=== PATIENT | female | born 1990 | race Caucasian/White ===

== ENCOUNTER → 2019-09-21 08:41 | Outpatient (BNVA) | payer OTHER, SELFPAY | PROVIDERS: Family Provider Nurse Practitioner; PCP Nurse Practitioner; Visit Provider Nurse Practitioner | DX: I10 Essential (primary) hypertension (principal); E55.9 Vitamin D deficiency, unspecified; E03.8 Other specified hypothyroidism; E04.9 Nontoxic goiter, unspecified | CPT/HCPCS: 80053; 82306; 84443; 85025 ==

== ENCOUNTER → 2019-10-25 10:25 | Outpatient (BNVA) | payer OTHER, SELFPAY | PROVIDERS: Family Provider Nurse Practitioner; PCP Nurse Practitioner; Visit Provider Obstetrics & Gynecology | DX: N91.1 Secondary amenorrhea (principal) | CPT/HCPCS: 83001; 84146; 84443; 84703 ==

== ENCOUNTER → 2019-10-31 16:55 | Outpatient (BNVA) | payer OTHER, SELFPAY | PROVIDERS: Family Provider Nurse Practitioner; PCP Nurse Practitioner; Visit Provider Nurse Practitioner Family | DX: R07.9 Chest pain, unspecified (principal) | CPT/HCPCS: 71046 ==

== ENCOUNTER 2020-02-18 10:20 | Emergency (ER) | payer OTHER, SELFPAY ==
[2020-02-18 10:25] VITALS: BP 147/113; PULSE 84; TEMP 36.7; O2SAT 97; BMI 47.5
[2020-02-18 10:32] VITALS: RESP 18
--- NOTE | 2020-02-18 10:36 | XRR_ITS ---
PROCEDURE INFORMATION: Exam: XR Right Elbow Exam date and time: 02/18/2020 10:55 AM Age: 29 years old Clinical indication: Injury or trauma; Initial encounter; Blunt trauma (contusions or hematomas; Elbow; Right; Injury date: 02/17/2020; Injury details: Fall last pm, limited rom and pain since TECHNIQUE: Imaging protocol: XR Right elbow. Views: 3 or more views. COMPARISON: No relevant prior studies available. FINDINGS: Bones/joints: No radiographic evidence of acute fracture or dislocation. Alignment anatomic. Joint spaces preserved. Elevation of the anterior fat pad without corresponding abnormality posteriorly. Soft tissues: Mild soft tissue swelling along the dorsum of the proximal forearm. XR/XR elbow RT min 3V* [id number] IMPRESSION: Questionable effusion and mild soft tissue swelling without convincing acute osseous abnormality. Clinical correlation and follow-up is urged.
--- NOTE | 2020-02-18 10:37 | XRR_ITS ---
PROCEDURE INFORMATION: Exam: XR Right Wrist Exam date and time: 02/18/2020 10:55 AM Age: 29 years old Clinical indication: Injury or trauma; Initial encounter; Blunt trauma (contusions or hematomas; Wrist; Right; Injury date: 02/17/2020; Injury details: Fall last pm, limited rom and pain since TECHNIQUE: Imaging protocol: XR Right wrist. Views: 3 or more views. COMPARISON: No relevant prior studies available. FINDINGS: Bones/joints: No radiographic evidence of acute fracture or dislocation. Alignment anatomic. Joint spaces preserved. Soft tissues: Grossly unremarkable. XR/XR wrist RT min 3V* [id number] IMPRESSION: No acute radiographic findings.
--- NOTE | 2020-02-18 10:37 | W.ED.EXTPRO ---
HPI - Extremity Problem General: Chief complaint: Extremity Injury, Upper Stated complaint: R ARM INJURY Time Seen by Provider: 02/18/20 10:26 History of Present Illness: HPI Narrative: [place] in the river she fell backwards extending the right arm now she has pain in her right elbow and right wrist she has no swelling but she says it does hurt to extend her elbow and is limited range of motion MD Complaint: extremity pain and joint pain Onset (ago): day(s) Pain Consistency: constant Location: right, upper extremity and elbow Severity scale (1-10): 5 Quality: aching Radiation: none Relieving factors: immobilization Exacerbating factors: range of motion Associated symptoms: Reports no associated symptoms; Deny chest pain, fever(s) or rash Review of Systems Const: Denies: fever(s), chills or body aches Eyes: Denies: change in vision or blurry vision ENMT: Denies: throat pain or nasal congestion Card: Denies: chest pain or dyspnea on exertion Resp: Denies: dyspnea, productive cough or non-productive cough GI: Denies: abdominal pain, nausea or vomiting Musc: Reports: extremity pain (Right wrist) and joint pain (Right elbow) Skin/Breast: Denies: rash Neuro: Denies: headache(s) Psych: Denies: anxiety or depression Jonas/Lymph: Denies: easy bruising PFSH ED PFSH: Medical History (Updated 01/19/20 @ 23:31 by DON Sharma) Chronic migraine Class 1 obesity with serious comorbidity in adult Cory's thyroiditis Hypertension Hypothyroid Lumbar radiculopathy, chronic Patient denies medical problems Denies history of: heart disease, breast cancer, ovarian cancer, or uterine cancer Vitamin D deficiency Surgical History History of tonsillectomy and adenoidectomy History of tubal ligation (~01/23/16) bilateral tubal ligation. Performed by Dr. Reginald Hair at [facility] in [place], [place]. Family History Father Hyperlipidemia Hypertension Thyroid condition Mother Colon cancer Brother Colon cancer Grandmother Diabetes Maternal and paternal Stroke maternal Denies family history of Ovarian cancer Heart disease Breast cancer Uterine cancer Social History Smoking and tobacco status: never smoked Second hand smoke exposure: No Smoking risk assessment/counseling performed?: No Alcohol intake: never Desire information about alcohol rehabilitation?: No Counseling given: No Desire information about substance/drug rehabilitation?: No Counseling given: No Adopted: No Caregiver/support person: No Lives independently: Yes Household members: spouse Housing: House Marital status: Number of children: 2 service: No Current occupational status: employed Current occupation: [employer] Pets and animals: No History of recent travel: No Current gender identity: Female Physical Exam Const: COMMON NORMALS: no acute distress, average body habitus and patient oriented x3 HENMT: COMMON NORMALS: normocephalic HEAD & SCALP: normal to inspection and normocephalic FACE & SINUS: normal facial exam Eye: COMMON NORMALS: conjunctivae normal GENERAL EYE: appearance normal, both eyes and all related structures CONJUNCTIVA: Yes conjunctivae normal Neck/C-Spine: COMMON NORMALS: no JVD Chest: COMMONS NORMALS: normal inspection of the chest Resp: COMMON NORMALS: normal respiratory effort and clear to auscultation bilaterally AUSCULTATION: clear to auscultation bilaterally Cardio: COMMON NORMALS: no JVD, regular rate and regular rhythm RATE: regular rate RHYTHM: regular rhythm GI: COMMON NORMALS: Normal to inspection, nondistended, normoactive bowel sounds present Extremity: COMMON NORMALS: normal to inspection RIGHT UPPER EXTREMITY: Yes elbow joint (Tender to medial aspect no swelling limited range of motion can extend proximally 160 degrees) and Yes wrist (Slight tenderness full range of motion) Neuro: COMMON NORMALS: patient oriented x3 Course Vital Signs: Vital signs: Vital Signs Temperature 98.1 F 02/18/20 10:25 Pulse Rate 84 02/18/20 10:25 Blood Pressure 147/113 02/18/20 10:25 Pulse Oximetry 97 02/18/20 10:25 Discharge Plan Discharge Prescriptions: No Action lisinopril 10 mg tablet 10 mg PO DAILY Qty: 90 RF: 1 ondansetron 4 mg tablet,disintegrating 4 mg PO Q8H PRN (Reason: nausea and vomiting) Qty: 14 RF: 0 Contrave 8-90 mg tablet extended release 2 tab PO .every 12 hours Qty: 120 RF: 0 levothyroxine [Synthroid] 25 mcg tablet 25 mcg PO DAILY Qty: 90 RF: 1 zonisamide 25 mg capsule 25 mg PO Q12H Qty: 60 RF: 0 cholecalciferol (vitamin D3) PO DAILY RF: 0 Coding Level 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
[2020-02-18 11:12] VITALS: RESP 18; TEMP 36.7; O2SAT 97
== END 2020-02-18 11:12 | disposition home or self-care (01) ==
PROVIDERS: Emergency Provider Nurse Practitioner Family; Family Provider Nurse Practitioner; PCP Nurse Practitioner
DX: S49.91XA Unspecified injury of right shoulder and upper arm, initial encounter (principal); I10 Essential (primary) hypertension; E66.8 Other obesity; W19.XXXA Unspecified fall, initial encounter
CPT/HCPCS: 12345; 73080; 73110; 99281; 99282

== ENCOUNTER 2020-03-02 14:52 | Outpatient (CLI) | payer OTHER, SELFPAY ==
--- NOTE | 2020-03-02 15:15 | MR_ITS ---
WS: [id number] MRI RIGHT ELBOW without CONTRAST. COMPARISON: Elbow radiograph 02/18/2020. Multiplanar, multisequence imaging is performed without contrast. History: Pain and swelling, prior trauma. Pain Marrow edema involving the proximal 3 cm of the radius. There is a nondisplaced fracture through the radial neck and head. Humeral condyles are intact. The proximal ulna is normal. There is a small to moderate joint effusion with distention of the anterior and posterior capsule. No displacement at the elbow joint. Distal biceps tendon and the brachial radialis are intact. No ligament or tendon abnorm ality is appreciated. MR/MR elbow RT wo con* [id number] IMPRESSION: 1. Nondisplaced radial head and neck fracture. No displacement. 2. Small to moderate joint effusion.
== END 2020-03-02 14:53 | disposition home or self-care (01) ==
LOC: RADSHAW 14:56
PROVIDERS: PCP Nurse Practitioner; Visit Provider Nurse Practitioner
DX: M25.521 Pain in right elbow (principal); S52.124A Nondisplaced fracture of head of right radius, initial encounter for closed fracture; S52.134A Nondisplaced fracture of neck of right radius, initial encounter for closed fracture; X58.XXXA Exposure to other specified factors, initial encounter; M25.421 Effusion, right elbow
CPT/HCPCS: 73221

== ENCOUNTER → 2020-03-19 11:11 | Outpatient (BNVA) | payer OTHER, SELFPAY | PROVIDERS: PCP Nurse Practitioner | DX: R10.9 Unspecified abdominal pain (principal); M54.16 Radiculopathy, lumbar region; R11.2 Nausea with vomiting, unspecified; Z68.42 Body mass index [BMI] 45.0-49.9, adult | CPT/HCPCS: 81000; 81003 ==

== ENCOUNTER → 2020-03-23 14:18 | Outpatient (BNVA) | payer OTHER, SELFPAY | PROVIDERS: PCP Nurse Practitioner; Visit Provider Nurse Practitioner | DX: E55.9 Vitamin D deficiency, unspecified (principal); E06.3 Autoimmune thyroiditis; G43.709 Chronic migraine without aura, not intractable, without status migrainosus; R20.2 Paresthesia of skin; I10 Essential (primary) hypertension; E66.9 Obesity, unspecified; Z79.899 Other long term (current) drug therapy | CPT/HCPCS: 36415; 80053; 82306; 82607; 84439; 84443; 84481; 85025 ==

== ENCOUNTER 2020-03-28 13:37 | Outpatient (CLI) | payer OTHER, SELFPAY ==
--- NOTE | 2020-03-28 13:47 | MR_ITS ---
WS: [id number] MRI HEAD WITHOUT CONTRAST TECHNIQUE: Sagittal T1, T2 axial, T2 axial FLAIR, axial and coronal T1 images, axial susceptibility w eighted imaging, axial diffusion weighted images, and coronal T2 images were obtained. CLINICAL INFORMATION: CHRONIC MIGRAINES COMPARISON: CT and MRI January 28, 2016 FINDINGS: No evidence of restricted diffusion to suggest acute ischemia. Ventricular system and basal cisterns are patent. No suspicious intracranial signal abnormalities. Normal cabrera-white differentiation. Mehreen l posterior fossa. Normal vascular flow voids at the skull base. No extra-axial fluid collections. No evidence of mass or mass effect. Paranasal sinuses are well aerated. Mild mucosal thickening right m astoid air cells. No hemosiderin on susceptibly weighted images. Normal optic chiasm and pituitary infundibulum. Temporal lobes and hippocampal formations are normal in appearance. MR/MR head wo con* [id number] IMPRESSION: 1. No evidence of restricted diffusion to suggest acute ischemia. 2. Ventricular system and basal cisterns are patent. Normal caberra-white differe ntiation. 3. Mild mucosal thickening in the mastoid air cells right greater than left. 4. No hemosiderin on susceptibly weighted images. 5. No other significant findings.
== END 2020-03-28 13:38 | disposition home or self-care (01) ==
LOC: RADWPI 13:42
PROVIDERS: PCP Nurse Practitioner; Visit Provider Nurse Practitioner
DX: R20.2 Paresthesia of skin (principal); G43.709 Chronic migraine without aura, not intractable, without status migrainosus
CPT/HCPCS: 70551

== ENCOUNTER 2020-06-04 21:53 | Emergency (ER) | payer OTHER, SELFPAY ==
[2020-06-04 22:40] VITALS: BP 112/85; BP 135/85; PULSE 108; PULSE 75; RESP 14; RESP 16; TEMP 37; TEMP 37.7; O2SAT 98; BMI 49.4
--- NOTE | 2020-06-04 23:21 | XR_ITS ---
WS: [id number] PORTABLE CHEST HISTORY: COVID rule out COMPARISON: 10/31/2019 Lungs are clear and well expanded. No pleural effusion or pneumothorax. Cardiac size: Normal. Mediastinum/Aorta: Normal mediastinum. No osseous abnormality seen. XR/XR chest 1V portable [id number] IMPRESSION: Unremarkable portable chest.
--- NOTE | 2020-06-04 23:35 | ED_ITS ---
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 She started feeling bad yesterday with some diarrhea and achiness. This morning she woke up with a fever and tried to call into work. She was told to come in anyway. 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 By the time she got home her temperature was 102.8. She took some Tylenol and has basically been in bed all day. She felt too ill to come to the hospital and waited for her to get home so he could bring her. She is having nausea but no vomiting. She is having diarrhea. She has a cough, shortness of breath. She does not have loss of taste or smell. 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 Her most recent exposure was 4 days before her symptoms started. She has a history of Cory's thyroiditis. She also is being worked up for a positive ISABELLE blood test. She does not have diabetes. MD elicited complaint: fever, malaise and weakness Onset (ago): day(s) (2) Measured temperature: 102.8 F Context: sick contacts Exacerbating factors: nothing Associated symptoms: Reports flank pain, myalgias, nasal congestion, nausea and sore throat; Deny chills, chest pain or headache(s) Treatments prior to arrival fever: acetaminophen Review of Systems General: Reports: 10 or more systems reviewed and unremarkable except in HPI and below Const: Denies: fever(s), chills, fatigue or malaise Eyes: Denies: change in vision ENMT: Reports: nasal congestion Card: Denies: chest pain or swelling of feet/ankles Resp: Reports: non-productive cough; Denies: dyspnea or productive cough GI: Reports: nausea : Reports: flank pain Musc: Denies: neck pain or back pain Skin/Breast: Denies: rash Neuro: Denies: headache(s), numbness in extremities or weakness in extremities Jonas/Lymph: Denies: easy bruising or easy bleeding [facility] ED PFSH: Medical History Chronic migraine Class 1 obesity with serious comorbidity in adult Cory's thyroiditis Hypertension Hypothyroid Lumbar radiculopathy, chronic Patient denies medical problems Denies history of: heart disease, breast cancer, ovarian cancer, or uterine cancer Vitamin D deficiency Surgical History History of tonsillectomy and adenoidectomy History of tubal ligation (~01/23/16) bilateral tubal ligation. Performed by Dr. Reginald Hair at [facility] in [place], [place]. Family History Father Hyperlipidemia Hypertension Thyroid condition Mother Colon cancer Brother Colon cancer Grandmother Diabetes Maternal and paternal Stroke maternal Denies family history of Ovarian cancer Heart disease Breast cancer Uterine cancer Social History Smoking and tobacco status: never smoked Second hand smoke exposure: No Smoking risk assessment/counseling performed?: No Alcohol intake: never Desire information about alcohol rehabilitation?: No Counseling given: No Desire information about substance/drug rehabilitation?: No Counseling given: No Adopted: No Caregiver/support person: No Lives independently: Yes Household members: spouse Housing: House Marital status: Number of children: 2 service: No Current occupational status: employed Current occupation: [employer] Pets and animals: No History of recent travel: No Current gender identity: Female Female Reproductive History: Date of last menstrual period: 03/23/20 Physical Exam Const: COMMON NORMALS: no acute distress, patient oriented x3, no limitations and alert GENERAL APPEARANCE: cooperative NUTRITIONAL APPEARANCE: obese HENMT: HEAD & SCALP: normal to inspection FACE & SINUS: normal facial exam Eye: GENERAL EYE: appearance normal, both eyes and all related structures Neck/C-Spine: COMMON NORMALS: supple, no meningeal signs and no JVD Chest: COMMONS NORMALS: normal inspection of the chest Resp: COMMON NORMALS: normal respiratory effort, No use of accessory muscles and clear to auscultation bilaterally AUSCULTATION: clear to auscultation bilaterally Cardio: COMMON NORMALS: no JVD, regular rate, regular rhythm and No murmurs present (Cardio) RATE: regular rate RHYTHM: regular rhythm GI: COMMON NORMALS: Normal to inspection, nondistended, normoactive bowel sounds present, Soft to palpation and non-tender INSPECTION: Yes normal to inspection AUSCULTATION: Yes normoactive bowel sounds PALPATION: Yes Soft to palpation Back/Pelvis: COMMON NORMALS: thoracic and lumbar spine normal to inspection Extremity: COMMON NORMALS: normal to inspection Neuro: COMMON NORMALS: patient oriented x3, moves all extremities, no focal motor deficits and no sensory deficits noted SENSORIUM/ORIENTATION: Yes alert MENINGEAL SIGNS: Yes no meningeal signs Psych: COMMON NORMALS: mental status grossly normal, cooperative and normal affect Skin: COMMON NORMALS: no rashes or lesions noted and turgor normal GENERAL SKIN EXAM: no rashes or lesions noted and turgor normal Course ED course: This patient had good oxygen saturation while in the department. She was tolerating p.o. fluids. She is on only day 2-3 of symptoms and day 6 or 7 since her last known exposure. We discussed the possibility of worsening symptoms particularly between 7 and 10 days of infection. Although her COVID rapid test was negative my clinical impression is very strongly suggesting COVID-19 infection. Her labs are consistent with that other than the rapid antigen test. I have advised her to not go to work and to self quarantine. Her probably should also self quarantine. She can follow-up with employee health if necessary for further guidance on when she can return to work. A quest COVID test has also been sent. Vital Signs: Vital signs: Vital Signs Temperature 98.4 F 06/05/20 00:41 Pulse Rate 92 06/05/20 02:19 Respiratory Rate 15 06/05/20 02:19 Blood Pressure 129/91 06/05/20 02:19 Pulse Oximetry 97 06/05/20 02:19 MDM - Fever Lab Data: Labs: Lab Results 06/04/20 06/04/20 06/04/20 Range/Units 23:33 23:33 23:33 WBC 8.3 (4.0-10.0) 10^3/ uL RBC 4.83 (4.1-5.3) 10^6/u L Hgb 12.3 (11.5-15.3) g/dL Hct 39.6 (37.0-47.0) % MCV 82.0 (81-99) fL MCH 25.5 L (28.0-34.0) pg MCHC 31.1 (30.0-36.0) g/dL RDW 15.2 H (12.1-15.1) % Plt Count 212 (130-400) 10^3/c mm MPV 10.0 (7.4-10.4) fL Neut % (Auto) 77.4 % Lymph % (Auto) 15.0 % [place] % (Auto) 6.9 % Eos % (Auto) 0.1 % Baso % (Auto) 0.4 % Neut # (Auto) 6.41 (1.8-7.7) 10^3/u L Lymph # (Auto) 1.2 (0.8-4.8) 10^3/u L [place] # (Auto) 0.6 (0.2-0.9) 10^3/u L Eos # (Auto) 0.0 (0.0-0.8) 10^3/u L Baso # (Auto) 0.0 (0.0-0.1) 10^3/u L Nucleated RBC % (a uto) 0 % Nucleated RBCs # 0.0 /100WBC PT 13.70 (12.1-14.9) SECO NDS INR 1.02 (0.8-1.2) Fibrinogen 539 H (174-498) mg/dL D-Dimer 2.96 H (0-0.59) ug/mIFE U Sodium 134 L (136-145) mmol/L Potassium 3.3 L (3.5-5.1) mmol/L Chloride 99 (98-107) mmol/L Carbon Dioxide 22 (22-29) mmol/L Anion Gap 16.3 (5-19) BUN 8 (6-20) mg/dL Creatinine 0.7 (0.5-0.9) mg/dL GFR Calculation 98.9 (90-130) mL/min Glucose 121 H (65-115) mg/dL Calculated Osmolal ity 278 L (285-295) mOsm/k g Lactic Acid (0.5-2.2) mmol/L Calcium 8.9 (8.5-10.5) mg/dL Ferritin 134 (15-150) ng/mL Total Bilirubin 0.3 (0.15-1.2) mg/dL AST 17 (0-32) U/L ALT 13 (0-33) U/L Alkaline Phosphata se 65 (35-105) IU/L C-Reactive Protein 102.4 H (0.0-4.9) mg/L NT-Pro-B Natriuret Pep 36 (0-125) pg/mL Total Protein 6.9 (6.6-8.7) g/dL Albumin 3.6 (3.5-5.2) g/dL Globulin 3.3 (1.3-4.6) g/dL Procalcitonin 0.16 (0-0.5) ng/mL HCG, Qual (Negative) Influenza Type A A g (Negative) Influenza Type B A g (Negative) SARS-CoV-2 Ag (Rap id) (Negative) 06/04/20 06/04/20 06/04/20 Range/Units 23:33 23:33 23:33 WBC (4.0-10.0) 10^3/ uL RBC (4.1-5.3) 10^6/u L Hgb (11.5-15.3) g/dL Hct (37.0-47.0) % MCV (81-99) fL MCH (28.0-34.0) pg MCHC (30.0-36.0) g/dL RDW (12.1-15.1) % Plt Count (130-400) 10^3/c mm MPV (7.4-10.4) fL Neut % (Auto) % Lymph % (Auto) % [place] % (Auto) % Eos % (Auto) % Baso % (Auto) % Neut # (Auto) (1.8-7.7) 10^3/u L Lymph # (Auto) (0.8-4.8) 10^3/u L [place] # (Auto) (0.2-0.9) 10^3/u L Eos # (Auto) (0.0-0.8) 10^3/u L Baso # (Auto) (0.0-0.1) 10^3/u L Nucleated RBC % (a uto) % Nucleated RBCs # /100WBC PT (12.1-14.9) SECO NDS INR (0.8-1.2) Fibrinogen (174-498) mg/dL D-Dimer (0-0.59) ug/mIFE U Sodium (136-145) mmol/L Potassium (3.5-5.1) mmol/L Chloride (98-107) mmol/L Carbon Dioxide (22-29) mmol/L Anion Gap (5-19) BUN (6-20) mg/dL Creatinine (0.5-0.9) mg/dL GFR Calculation (90-130) mL/min Glucose (65-115) mg/dL Calculated Osmolal ity (285-295) mOsm/k g Lactic Acid 0.8 (0.5-2.2) mmol/L Calcium (8.5-10.5) mg/dL Ferritin (15-150) ng/mL Total Bilirubin (0.15-1.2) mg/dL AST (0-32) U/L ALT (0-33) U/L Alkaline Phosphata se (35-105) IU/L C-Reactive Protein (0.0-4.9) mg/L NT-Pro-B Natriuret Pep (0-125) pg/mL Total Protein (6.6-8.7) g/dL Albumin (3.5-5.2) g/dL Globulin (1.3-4.6) g/dL Procalcitonin (0-0.5) ng/mL HCG, Qual Negative (Negative) Influenza Type A A g (Negative) Influenza Type B A g (Negative) SARS-CoV-2 Ag (Rap id) Negative (Negative) 06/04/20 Range/Units 23:33 WBC (4.0-10.0) 10^3/ uL RBC (4.1-5.3) 10^6/u L Hgb (11.5-15.3) g/dL Hct (37.0-47.0) % MCV (81-99) fL MCH (28.0-34.0) pg MCHC (30.0-36.0) g/dL RDW (12.1-15.1) % Plt Count (130-400) 10^3/c mm MPV (7.4-10.4) fL Neut % (Auto) % Lymph % (Auto) % [place] % (Auto) % Eos % (Auto) % Baso % (Auto) % Neut # (Auto) (1.8-7.7) 10^3/u L Lymph # (Auto) (0.8-4.8) 10^3/u L [place] # (Auto) (0.2-0.9) 10^3/u L Eos # (Auto) (0.0-0.8) 10^3/u L Baso # (Auto) (0.0-0.1) 10^3/u L Nucleated RBC % (a uto) % Nucleated RBCs # /100WBC PT (12.1-14.9) SECO NDS INR (0.8-1.2) Fibrinogen (174-498) mg/dL D-Dimer (0-0.59) ug/mIFE U Sodium (136-145) mmol/L Potassium (3.5-5.1) mmol/L Chloride (98-107) mmol/L Carbon Dioxide (22-29) mmol/L Anion Gap (5-19) BUN (6-20) mg/dL Creatinine (0.5-0.9) mg/dL GFR Calculation (90-130) mL/min Glucose (65-115) mg/dL Calculated Osmolal ity (285-295) mOsm/k g Lactic Acid (0.5-2.2) mmol/L Calcium (8.5-10.5) mg/dL Ferritin (15-150) ng/mL Total Bilirubin (0.15-1.2) mg/dL AST (0-32) U/L ALT (0-33) U/L Alkaline Phosphata se (35-105) IU/L C-Reactive Protein (0.0-4.9) mg/L NT-Pro-B Natriuret Pep (0-125) pg/mL Total Protein (6.6-8.7) g/dL Albumin (3.5-5.2) g/dL Globulin (1.3-4.6) g/dL Procalcitonin (0-0.5) ng/mL HCG, Qual (Negative) Influenza Type A A g Negative (Negative) Influenza Type B A g Negative (Negative) SARS-CoV-2 Ag (Rap id) (Negative) Discharge Plan Discharge Patient Disposition: Home Clinical Impression: Close exposure to 2019 novel coronavirus Fever Qualifiers: Fever type: unspecified Qualified Code(s): R50.9 - Fever, unspecified Condition: Stable Prescriptions: No Action levothyroxine [Synthroid] 25 mcg tablet 25 mcg PO DAILY Qty: 90 RF: 1 lisinopril 10 mg tablet 10 mg PO DAILY Qty: 90 RF: 1 cholecalciferol (vitamin D3) 50 mcg PO DAILY RF: 0 ondansetron HCl [Zofran] 4 mg tablet 4 mg PO Q6H PRN (Reason: nausea and vomiting) Qty: 10 RF: 0 Contrave 8-90 mg tablet extended release 2 tab PO BID Qty: 120 RF: 0 Discharge Orders: Discharge Order (Routine); Ordered 06/05/20 Ordered By: Grace Morris Referrals: [facility], [Primary Care Provider] - Discharge Diet: Usual diet Discharge Activity: Limit activity as instructed Patient Instructions: Fever in Adults (ED), Upper Respiratory Infection (ED) Activity Restrictions/Additional Instructions: Rest and self quarantine as your symptoms and lab tests are highly suggestive of COVID-19 infection, and you have had a known exposure. Your should also self-quarantine. You will be contacted in a few days regarding the send out test result. Return to the ED if trouble breathing, not able to take fluids, or any other concerns. Take tylenol for fever - up to 1000 mg every 4 hours if needed. Stand Alone Forms: Work/School Release Discharge Date/Time: 06/05/20 02:07 Coding Level of Care Code ED Hereditary Cancer Program Coordinator for Bill Fwmarcela Exam Comprehensive
[2020-06-05] MEDS: sodium chloride 0.9% 1,000 ML 150 ML IV (00:15)
[2020-06-05 00:17] LABS: Basophils % 0.4 %; Eosinophils % 0.1 %; Hematocrit 39.6 % (37.0-47.0); Hemoglobin 12.3 g/dL (11.5-15.3); Lymphocytes # 1.2 10^3/uL (0.8-4.8); Mean Corpuscular HGB Conc 31.1 g/dL (30.0-36.0); Mean Corpuscular Hemoglobin 25.5 pg (28.0-34.0); Monocytes # 0.6 10^3/uL (0.2-0.9); Monocytes % 6.9 %; Neutrophils # 6.41 10^3/uL (1.8-7.7); Neutrophils % 77.4 %; Nucleated Red Blood Cells % 0 %; Platelet Count 212 10^3/cmm (130-400); Red Blood Count 4.83 10^6/uL (4.1-5.3); Red Cell Distribution Width 15.2 % (12.1-15.1); White Blood Count 8.3 10^3/uL (4.0-10.0)
[2020-06-05 00:27] LABS: Fibrinogen 539 mg/dL (174-498); HCG, Serum Qual Negative (Negative); INR 1.02 (0.8-1.2)
[2020-06-05 00:31] LABS: D Dimer 2.96 ug/mIFEU (0-0.59)
[2020-06-05 00:32] LABS: Lactic Sepsis W/Reflex 0.8 mmol/L (0.5-2.2)
[2020-06-05 00:33] LABS: Alanine Aminotransferase 13 U/L (0-33); Albumin Level 3.6 g/dL (3.5-5.2); Alkaline Phosphatase 65 IU/L (35-105); Anion Gap 16.3 (5-19); Aspartate Amino Transferase 17 U/L (0-32); Blood Urea Nitrogen 8 mg/dL (6-20); Calcium 8.9 mg/dL (8.5-10.5); Carbon Dioxide 22 mmol/L (22-29); Chloride 99 mmol/L (98-107); Globulin 3.3 g/dL (1.3-4.6); Glomerular Filtration Rate 98.9 mL/min (90-130); Glucose 121 mg/dL (65-115); Osmolality Calculated 278 mOsm/kg (285-295); Potassium 3.3 mmol/L (3.5-5.1); Sodium 134 mmol/L (136-145); Total Bilirubin 0.3 mg/dL (0.15-1.2); Total Protein 6.9 g/dL (6.6-8.7)
[2020-06-05 00:40] VITALS: BP 106/59; PULSE 77; RESP 16; O2SAT 92
[2020-06-05 00:41] VITALS: TEMP 36.9
[2020-06-05 00:50] LABS: Influenza A by IFA Negative (Negative); Influenza B by IFA Negative (Negative); SARS Covid-2 Antigen Negative (Negative)
[2020-06-05 00:58] LABS: Procalcitonin 0.16 ng/mL (0-0.5)
[2020-06-05 01:09] LABS: C Reactive Protein 102.4 mg/L (0.0-4.9); Ferritin 134 ng/mL (15-150)
[2020-06-05 01:28] VITALS: RESP 16
[2020-06-05 01:35] LABS: NT Pro B Type Natriuretic Pept 36 pg/mL (0-125)
[2020-06-05 02:19] VITALS: BP 129/91; PULSE 92; RESP 15; O2SAT 97
[2020-06-06 14:32] LABS: Quest SARS-CoV-2 RNA NOT DETECTED (NOT DETECTED)
--- NOTE | 2020-06-06 17:29 | PC.NURSE ---
pt contacted and given the results of their COVID test
== END 2020-06-05 02:07 | disposition home or self-care (01) ==
PROVIDERS: Emergency Provider Emergency Medicine
DX: Z20.828 Contact with and (suspected) exposure to other viral communicable diseases (principal); R50.9 Fever, unspecified; I10 Essential (primary) hypertension
CPT/HCPCS: 12345; 71045; 80053; 82728; 83605; 83880; 84145; 84703; 85025; 85378; 85384; 85610; 86140; 87426; 87635; 87804; 96360; 96361; 99283; 99284; J7030

== ENCOUNTER → 2020-07-02 14:49 | Outpatient (BNVA) | payer OTHER, SELFPAY | PROVIDERS: Visit Provider Internal Medicine Rheumatology | DX: G57.13 Meralgia paresthetica, bilateral lower limbs (principal); E06.3 Autoimmune thyroiditis; M25.551 Pain in right hip; M25.552 Pain in left hip; Z68.42 Body mass index [BMI] 45.0-49.9, adult; R76.8 Other specified abnormal immunological findings in serum | CPT/HCPCS: 99203 ==

== ENCOUNTER 2020-07-02 16:48 | Outpatient (CLI) | payer OTHER, SELFPAY ==
[2020-07-02 17:45] LABS: 25 Hydroxy Vitamin D 19 ng/mL (30-100); C Reactive Protein 20.4 mg/L (0.0-4.9); Creatine Phosphokinase 61 U/L (26-192); Potassium 3.6 mmol/L (3.5-5.1); Thyroid Stimulating Hormone 1.56 uIU/mL (0.27-4.20)
[2020-07-02 18:05] LABS: Erythrocyte Sedimentation Rate 32 mm/hr (0-15)
[2020-07-02 18:17] LABS: Bilirubin Urine Neg (Negative); Blood Urine Neg (Negative); Glucose Urine UA Norm (Normal); Ketones Urine Negative (Negative); Leukocyte Esterase Urine Negative (Negative); Nitrate Urine Negative (Negative); Protein Urine Neg (Negative); Specific Gravity, Urine 1.015 (1.005-1.030); Sulfosalicylic Acid Urine Negative (Negative); Urine Appearance Hazy (CLEAR); Urine Color Yellow (Yellow); Urobilinogen Urine Norm (Negative); pH Urine 8 (5-7)
[2020-07-02 18:18] LABS: WBC Urine RARE /hpf (0-5)
[2020-07-02 18:19] LABS: Add Urine Culture? No; Amorphous Sediment Urine 2+ /hpf; Bacteria Urine TRACE /hpf
[2020-07-02 23:38] LABS: Free T4 Free Thyroxine 1.12 ng/dL (0.82-1.77)
[2020-07-06 14:07] LABS: COMPLEMENT, TOTAL (CH50) >60 U/mL (31-60)
[2020-07-06 14:37] LABS: COMPLEMENT COMPONENT C3C 160 mg/dL (83-193); COMPLEMENT COMPONENT C4C 31 mg/dL (15-57)
[2020-07-09 15:23] LABS: CENTROMERE B ANTIBODY <1.0 NEG AI (<1.0 NEG); JO-1 ANTIBODY <1.0 NEG AI (<1.0 NEG); RNP ANTIBODY <1.0 NEG AI (<1.0 NEG); SCL-70 ANTIBODY <1.0 NEG AI (<1.0 NEG); SJOGREN'S ANTIBODY (SS-A) <1.0 NEG AI (<1.0 NEG); SM ANTIBODY <1.0 NEG AI (<1.0 NEG); THYROID PEROXIDASE ANTIBODIES 312 IU/mL (<9)
[2020-07-09 21:48] LABS: DNA AB (DS) CRITHIDIA,IFA NEGATIVE (NEGATIVE)
[2020-07-10 14:08] LABS: ANA PATTERN Nuclear, Speckled; ANA SCREEN, IFA POSITIVE (NEGATIVE); ANA TITER 1:40 titer
== END 2020-07-02 16:49 | disposition home or self-care (01) ==
LOC: LAB 16:51
PROVIDERS: PCP Nurse Practitioner; Visit Provider Internal Medicine Rheumatology
DX: G57.10 Meralgia paresthetica, unspecified lower limb (principal); R76.8 Other specified abnormal immunological findings in serum; Z79.899 Other long term (current) drug therapy
CPT/HCPCS: 36415; 81001; 82306; 82550; 84132; 84439; 84443; 85651; 86140

== ENCOUNTER → 2020-08-14 15:10 | Outpatient (BNVA) | payer OTHER, SELFPAY | PROVIDERS: PCP Nurse Practitioner; Visit Provider Internal Medicine Rheumatology | DX: E06.3 Autoimmune thyroiditis; M25.551 Pain in right hip; M25.552 Pain in left hip; G57.13 Meralgia paresthetica, bilateral lower limbs; Z68.42 Body mass index [BMI] 45.0-49.9, adult; R76.8 Other specified abnormal immunological findings in serum; Z79.899 Other long term (current) drug therapy | CPT/HCPCS: 99213 ==

== ENCOUNTER 2020-08-24 15:04 | Outpatient (CLI) | payer OTHER, SELFPAY ==
--- NOTE | 2020-08-24 15:15 | US_ITS ---
WS: [id number] US soft tissue/extremity [id number] REASON FOR EXAM: PAIN/?PANNICULITIS-L LATERAL THIGH FINDINGS: No discrete mass or focal fluid collection was identified in the soft tissues of the left lateral thi gh. There was a small area of vague altered echogenicity which could represent an area of or indurated fa t at the fat muscle fascia interface. This appeared to be where pain was localized. US/US soft tissue/extremity [id number] IMPRESSION: No discrete fluid collection or mass. Vague abnormality within the deep subcuta neous fat as above.
== END 2020-08-24 15:05 | disposition home or self-care (01) ==
LOC: RAD 15:10
PROVIDERS: PCP Nurse Practitioner; Visit Provider Internal Medicine Rheumatology
DX: M79.605 Pain in left leg (principal)
CPT/HCPCS: 76882

== ENCOUNTER 2020-09-12 15:51 | Outpatient (CLI) | payer OTHER, SELFPAY | END 2020-09-12 15:52 | disposition home or self-care (01) | PROVIDERS: PCP Nurse Practitioner; Visit Provider Internal Medicine | DX: E06.3 Autoimmune thyroiditis (principal); E03.8 Other specified hypothyroidism; E55.9 Vitamin D deficiency, unspecified; E66.01 Morbid (severe) obesity due to excess calories; R63.5 Abnormal weight gain | CPT/HCPCS: 99205 ==

== ENCOUNTER 2020-09-14 11:21 | Outpatient (CLI) | payer OTHER, SELFPAY ==
[2020-09-14 12:06] LABS: Urine Creatinine 128 mg/dL (28-217)
[2020-09-14 12:15] LABS: Thyroid Stimulating Hormone 1.67 uIU/mL (0.27-4.20)
[2020-09-14 13:07] LABS: Total Volume Urine 1250 ml
[2020-09-14 13:30] LABS: Free T4 Free Thyroxine 0.98 ng/dL (0.82-1.77)
[2020-09-19 12:23] LABS: Free Cortisol Urine 30.8 mcg/24 h (4.0-50.0); Total Urine 1250 mL; Urine Creatinine 1.55 g/24 h (0.50-2.15)
== END 2020-09-14 11:22 | disposition home or self-care (01) ==
PROVIDERS: PCP Nurse Practitioner; Visit Provider Internal Medicine
DX: E03.8 Other specified hypothyroidism (principal); E06.3 Autoimmune thyroiditis; R63.5 Abnormal weight gain
CPT/HCPCS: 36415; 82530; 82570; 84439; 84443

== ENCOUNTER 2020-11-08 11:35 | Outpatient (CLI) | payer OTHER, SELFPAY ==
--- NOTE | 2020-11-08 11:45 | MR_ITS ---
WS: [id number] MRI LEFT FEMUR WITH AND WITHOUT CONTRAST. COMPARISON: Ultrasound 08/24/2020. Multiplanar, multisequence imaging is performed with and without contrast. MRI is directed to the lateral aspect of the LEFT thigh no enhancing mass or signal abnormalities not ed within the soft tissues or muscles of the LEFT thigh. There is a very superficial varicosity exten ding through the soft tissues over the upper lateral thigh. No marrow signal abnormality within the b one. No enhancing mass. Some of the sequences are significantly limited by motion. MR/MR femur LT wo/w con [id number] IMPRESSION: Negative MRI LEFT thigh. No enhancing masses or signal abnormalities are identi fied. Some of the sequences are suboptimal and limited by patient movement.
[2020-11-08] MEDS: gadobenate dimeglumine 20 mL vial IV (13:43)
== END 2020-11-08 11:36 | disposition home or self-care (01) ==
LOC: RADSHAW 11:37
PROVIDERS: PCP Nurse Practitioner; Visit Provider Surgery
DX: M79.652 Pain in left thigh (principal)
CPT/HCPCS: 73720; A9577

== ENCOUNTER → 2020-11-19 15:20 | Outpatient (BNVA) | payer OTHER, SELFPAY | PROVIDERS: PCP Nurse Practitioner; Visit Provider Surgery | DX: M79.652 Pain in left thigh (principal); M79.3 Panniculitis, unspecified | CPT/HCPCS: 88304 ==

== ENCOUNTER 2020-12-11 13:43 | Outpatient (CLI) | payer OTHER, SELFPAY ==
[2020-12-11 14:09] LABS: Basophils # 0.1 10^3/uL (0.0-0.1); Basophils % 0.7 %; Eosinophils # 0.1 10^3/uL (0.0-0.8); Eosinophils % 0.9 %; Hematocrit 42.3 % (37.0-47.0); Lymphocytes # 2.7 10^3/uL (0.8-4.8); Lymphocytes % 29.8 %; Mean Corpuscular HGB Conc 30.7 g/dL (30.0-36.0); Mean Corpuscular Hemoglobin 26.1 pg (28.0-34.0); Mean Corpuscular Volume 84.9 fL (81-99); Mean Platelet Volume 9.9 fL (7.4-10.4); Monocytes # 0.6 10^3/uL (0.2-0.9); Monocytes % 6.1 %; Neutrophils # 5.66 10^3/uL (1.8-7.7); Neutrophils % 62.3 %; Nucleated Red Blood Cells % 0 %; Platelet Count 254 10^3/cmm (130-400); Red Blood Count 4.98 10^6/uL (4.1-5.3); Red Cell Distribution Width 14.6 % (12.1-15.1); White Blood Count 9.1 10^3/uL (4.0-10.0)
[2020-12-11 14:39] LABS: Alanine Aminotransferase 17 U/L (0-33); Alkaline Phosphatase 72 IU/L (35-105); Anion Gap 13.2 (5-19); Aspartate Amino Transferase 15 U/L (0-32); Blood Urea Nitrogen 9 mg/dL (6-20); Calcium 9.3 mg/dL (8.5-10.5); Carbon Dioxide 28 mmol/L (22-29); Chloride 105 mmol/L (98-107); Globulin 2.8 g/dL (1.3-4.6); Glomerular Filtration Rate 117.4 mL/min (90-130); Glucose 91 mg/dL (65-115); Osmolality Calculated 292 mOsm/kg (285-295); Potassium 4.2 mmol/L (3.5-5.1); Sodium 142 mmol/L (136-145); Thyroid Stimulating Hormone 0.92 uIU/mL (0.27-4.20); Total Bilirubin 0.5 mg/dL (0.15-1.2); Total Protein 6.8 g/dL (6.6-8.7)
== END 2020-12-11 13:44 | disposition home or self-care (01) ==
PROVIDERS: PCP Nurse Practitioner; Visit Provider Nurse Practitioner Family
DX: I10 Essential (primary) hypertension (principal); E03.8 Other specified hypothyroidism; E06.3 Autoimmune thyroiditis
CPT/HCPCS: 36415; 80053; 84443; 85025; 99213

== ENCOUNTER 2020-12-30 21:10 | Emergency (ER) | payer OTHER, SELFPAY ==
[2020-12-30 21:23] VITALS: BP 142/76; PULSE 83; RESP 16; TEMP 36.6; O2SAT 98; BMI 47.5
--- NOTE | 2020-12-30 21:29 | XR_ITS ---
WS: [id number] RIGHT HAND: 3 VIEW(S) TECHNIQUE: PA, oblique and lateral. HISTORY: pain COMPARISON: None available. No acute fracture or dislocation. Mild soft tissue edema along the medial portion of the wrist and hand. XR/XR hand RT min 3V* [id number] IMPRESSION: Soft tissue edema along the medial hand and wrist. No fracture seen.
--- NOTE | 2020-12-30 21:29 | XR_ITS ---
WS: [id number] RIGHT WRIST: 3 VIEW(S) TECHNIQUE: PA, oblique and lateral. HISTORY: swelling, pain COMPARISON: 02/17/2021 No acute fracture or dislocation. No joint space abnormality. No soft tissue swelling. XR/XR wrist RT min 3V* [id number] IMPRESSION: Negative RIGHT wrist.
[2020-12-30 22:01] VITALS: BP 153/92; PULSE 87; RESP 18; O2SAT 98
[2020-12-30 22:22] VITALS: BP 125/88; PULSE 77; RESP 16; O2SAT 99
--- NOTE | 2020-12-30 22:22 | PC.NURSE ---
ice pack provided. patient tolerated well.
--- NOTE | 2020-12-30 22:38 | ED_ITS ---
HPI - Extremity Problem General: Chief complaint: Extremity Injury, Upper Stated complaint: RT ARM INJURY Time Seen by Provider: 12/30/20 22:17 History of Present Illness: HPI Narrative: Patient states that she struck her right wrist against a concrete cellar earlier today. Complaint: extremity pain Onset (ago): hour(s) Pain Consistency: constant Location: right and upper extremity Severity scale (1-10): 4 Quality: aching Radiation: none Relieving factors: immobilization Exacerbating factors: range of motion Associated symptoms: Reports no associated symptoms; Deny chest pain, fever(s) or rash Review of Systems Const: Denies: fever(s), chills or body aches Eyes: Denies: change in vision or blurry vision ENMT: Denies: throat pain or nasal congestion Card: Denies: chest pain or dyspnea on exertion Resp: Denies: dyspnea, productive cough or non-productive cough GI: Denies: abdominal pain, nausea or vomiting Musc: Reports: extremity pain (Right wrist area) Skin/Breast: Denies: rash Neuro: Denies: headache(s) Psych: Denies: anxiety or depression Jonas/Lymph: Denies: easy bruising PFSH ED PFSH: Medical History Acute and chronic respiratory failure with hypercapnia Chronic migraine Class 1 obesity with serious comorbidity in adult Greater trochanteric pain syndrome Hypertension Left thigh pain CPK WNL Left thigh pain Lumbar radiculopathy, chronic Meralgia paresthetica of both lower extremities Patient denies medical problems Denies history of: heart disease, breast cancer, ovarian cancer, or uterine cancer Positive ISABELLE (antinuclear antibody) Vitamin D deficiency Surgical History History of tonsillectomy and adenoidectomy History of tubal ligation (~01/23/16) bilateral tubal ligation. Performed by Dr. Reginald Hair at [facility] in [place], [place]. Family History Father Hyperlipidemia Hypertension Thyroid condition Mother Colon cancer Brother Colon cancer Grandmother Diabetes Maternal and paternal Stroke maternal Denies family history of Rheumatoid arthritis Ovarian cancer Lupus Heart disease Breast cancer Uterine cancer Social History Smoking and tobacco status: never smoked Second hand smoke exposure: No Smoking risk assessment/counseling performed?: No Alcohol intake: never Desire information about alcohol rehabilitation?: No Counseling given: No Desire information about substance/drug rehabilitation?: No Counseling given: No Adopted: No Caregiver/support person: No Lives independently: Yes Household members: spouse Housing: House Marital status: Number of children: 2 service: No Current occupational status: employed Current occupation: [employer] [place] [employer] [place] Pets and animals: No History of recent travel: No Current gender identity: Female Female Reproductive History: Date of last menstrual period: 12/30/20 Physical Exam Const: COMMON NORMALS: no acute distress Extremity: OTHER: Patient has bruising to the right side of her hand ulnar aspect looks like a busted blood vessel. Very mild swelling does have tenderness. Psych: COMMON NORMALS: mental status grossly normal Course Vital Signs: Vital signs: Vital Signs Temperature 98 F 12/30/20 21:23 Pulse Rate 77 12/30/20 22:22 Respiratory Rate 16 12/30/20 22:22 Blood Pressure 125/88 12/30/20 22:22 Pulse Oximetry 99 12/30/20 22:22 MDM - Extremity (Nontraumatic) MDM Narrative: Medical decision making narrative: X-rays negative. Discharge Plan Discharge Patient Disposition: Home Clinical Impression: Contusion Qualifiers: Encounter type: initial encounter Contusion area: wrist Laterality: right Qualified Code(s): S60.211A - Contusion of right wrist, initial encounter Condition: Stable Prescriptions: No Action magnesium citrate Solution 150 ml PO BID PRN (Reason: constipation) Qty: 296 RF: 0 levothyroxine [Synthroid] 25 mcg tablet 25 mcg PO DAILY 90 Days Qty: 90 RF: 1 citalopram [Celexa] 20 mg tablet 20 mg PO DAILY 90 Days Qty: 90 RF: 0 polyethylene glycol 3350 [Miralax] 17 gram/dose powder 17 g PO DAILY 90 Days Qty: 3 RF: 2 cholecalciferol (vitamin D3) 50 mcg PO DAILY RF: 0 diclofenac sodium 1 % gel 2 gm TOPICAL QID Qty: 100 RF: 2 tramadol 50 mg tablet See Rx Instructions PO BID PRN (Reason: pain) Qty: 30 RF: 0 lisinopril 20 mg tablet 20 mg PO BID 90 Days Qty: 180 RF: 1 Contrave 8-90 mg tablet extended release 2 tab PO BID Qty: 120 RF: 0 Discharge Orders: Discharge ED (Routine); Ordered 12/30/20 Ordered By: Malick Nettles Referrals: Azul Zhao, [facility] [Primary Care Provider] - Discharge Diet: Usual diet Discharge Activity: Increase activity as tolerated Patient Instructions: Contusion in Adults (ED) Activity Restrictions/Additional Instructions: Ice area as needed. Can take Tylenol and/or ibuprofen for discomfort. Follow- up your family medical provider if no significant provement. Stand Alone Forms: Work/School Release Coding Level of Care Code ED Financial Accounting Analyst for Bill Keyes
[2020-12-30 22:59] VITALS: BP 127/66; PULSE 85; RESP 16
== END 2020-12-30 23:01 | disposition home or self-care (01) ==
PROVIDERS: Emergency Provider Nurse Practitioner Family; PCP Nurse Practitioner
DX: S60.211A Contusion of right wrist, initial encounter (principal); W22.8XXA Striking against or struck by other objects, initial encounter
CPT/HCPCS: 73110; 73130; 99282

== ENCOUNTER → 2021-01-27 11:44 | Outpatient (BNVA) | payer OTHER, SELFPAY | PROVIDERS: PCP Nurse Practitioner; Visit Provider Nurse Practitioner | DX: M25.512 Pain in left shoulder (principal) | CPT/HCPCS: 73030 ==

== ENCOUNTER 2021-04-17 16:24 | Outpatient (CLI) | payer OTHER, SELFPAY ==
--- NOTE | 2021-04-17 16:32 | MR_ITS ---
WS: [id number] MRI LEFT SHOULDER NONCONTRAST TECHNIQUE: Sagittal T2, coronal T1, T2 and proton density imaging. Axial gradient PDE imaging. CLINICAL INFORMATION: M25.512 - Pain in left shoulder COMPARISON: None. FINDINGS: Moderate degenerative arthritis AC joint with mild downsloping of the acromion. Subacromial spurring. Mild edema at the AC joint. Slight subacromial spurring. Chronic thinning of the distal rotator cuff . Mild chronic thinning of the distal supraspinatus and infraspinatus with tendinopathy. Normal teres minor. Normal subscapularis. Biceps tendon somewhat diminutive but intact within the bicipital groov e. Glenoid labrum appears grossly normal. Normal bone marrow signal in the humeral head and glenoid. MR/MR shoulder LT wo con* [id number] IMPRESSION: 1. 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 Subacromial spurring. Associated edema with trace subacromial/subdeltoid f luid. 2. Chronic thinning of the distal supraspinatus and infraspinatus with tendino barbara. No high-grade rotator cuff tears. 3. Diminutive biceps tendon within the bicipital groove. 4. Normal bone marrow signal in the humerus and glenoid. 5. No other significant findings.
== END 2021-04-17 16:25 | disposition home or self-care (01) ==
PROVIDERS: PCP Nurse Practitioner; Visit Provider Nurse Practitioner
DX: M25.512 Pain in left shoulder (principal); M19.012 Primary osteoarthritis, left shoulder; R60.0 Localized edema
CPT/HCPCS: 73221

== ENCOUNTER → 2021-05-08 09:31 | Outpatient (BNVA) | payer OTHER, SELFPAY | PROVIDERS: PCP Nurse Practitioner; Referring Provider Nurse Practitioner; Visit Provider Specialist | DX: M25.512 Pain in left shoulder (principal) | CPT/HCPCS: 73030 ==

== ENCOUNTER 2021-05-14 06:00 | Outpatient (RCR) | payer OTHER, SELFPAY | END 2021-06-06 23:59 | disposition home or self-care (01) | LOC: TPT 06:00 | PROVIDERS: PCP Nurse Practitioner; Referring Provider Specialist; Visit Provider Specialist | DX: M19.012 Primary osteoarthritis, left shoulder (principal) | CPT/HCPCS: 97110; 97140; 97161 ==

== ENCOUNTER 2021-06-07 06:00 | Outpatient (RCR) | payer OTHER, SELFPAY | END 2021-07-07 23:59 | disposition home or self-care (01) | LOC: TPT 06:00 | PROVIDERS: PCP Nurse Practitioner; Referring Provider Specialist; Visit Provider Specialist | DX: M19.012 Primary osteoarthritis, left shoulder (principal) | CPT/HCPCS: 97110 ==

== ENCOUNTER 2021-06-14 10:08 | Outpatient (CLI) | payer OTHER, SELFPAY ==
[2021-06-14 11:08] LABS: Alanine Aminotransferase 15 U/L (0-33); Albumin Level 3.8 g/dL (3.5-5.2); Alkaline Phosphatase 83 IU/L (35-105); Anion Gap 12.7 (5-19); Aspartate Amino Transferase 13 U/L (0-32); Blood Urea Nitrogen 10 mg/dL (6-20); Calcium 9.2 mg/dL (8.5-10.5); Carbon Dioxide 28 mmol/L (22-29); Chloride 103 mmol/L (98-107); Globulin 3.2 g/dL (1.3-4.6); Glomerular Filtration Rate 144.9 mL/min (90-130); Glucose 88 mg/dL (65-115); Osmolality Calculated 286 mOsm/kg (285-295); Potassium 4.7 mmol/L (3.5-5.1); Sodium 139 mmol/L (136-145); Thyroid Stimulating Hormone 1.21 uIU/mL (0.27-4.20); Total Bilirubin 0.3 mg/dL (0.15-1.2)
== END 2021-06-14 10:09 | disposition home or self-care (01) ==
LOC: LAB 10:11
PROVIDERS: PCP Nurse Practitioner; Visit Provider Nurse Practitioner
DX: E03.8 Other specified hypothyroidism (principal); E06.3 Autoimmune thyroiditis
CPT/HCPCS: 36415; 80053; 84443

== ENCOUNTER 2021-09-17 02:02 | Emergency (ER) | payer BC, SELFPAY ==
--- NOTE | 2021-09-17 02:19 | ED_ITS ---
HPI - COVID General: Chief Complaint: General Medical Stated Complaint: COVID SYMP Time Seen by Provider: 09/17/21 02:18 History of Present Illness: HPI Narrative: Ms. Ramirez is a 31-year-old lady with history of obesity who presents to the emergency department due to infectious symptoms. Symptoms started yesterday morning including cough, fatigue, aches. Initially symptoms were mild however subsequently rapidly worsened. Associated subjective fevers and chills. Cough is only minimally productive. There is mild to moderate shortness of breath with exertion. Overall the course of symptoms has been worsening. Intensity is moderate to severe. No other specific changes in health, exacerbating, or relieving factors identified. Prior covid testing: no (Not recently) COVID 19 common symptoms: positive fever(s), chills, cough, dyspnea, fatigue, body aches and nasal congestion Onset (ago): day(s) Severity: moderate and rapidly worsening Pertinent comorbid conditions: obesity COVID Results: SARS-CoV-2 Antigen (Rapid) Positive (Negative) H 09/17/21 02:38 09/17/21 SARS-CoV-2 RNA (RT-PCR) Not detected (NOT DETECTED) 06/05/20 01:19 06/05/20 Review of Systems General: Reports: 10 or more systems reviewed and unremarkable except in HPI and below Const: Reports: fever(s), chills, body aches and fatigue ENMT: Reports: nasal congestion Resp: Reports: dyspnea PFSH ED PFSH: Medical History Acute and chronic respiratory failure with hypercapnia Anxiety associated with depression Chronic migraine Class 1 obesity with serious comorbidity in adult Greater trochanteric pain syndrome Hypertension Left thigh pain CPK WNL Left thigh pain Lumbar radiculopathy, chronic Meralgia paresthetica of both lower extremities Patient denies medical problems Denies history of: heart disease, breast cancer, ovarian cancer, or uterine cancer Positive ISABELLE (antinuclear antibody) Vitamin D deficiency Surgical History History of colonoscopy (~2016) History of tonsillectomy and adenoidectomy History of tubal ligation (~01/23/16) bilateral tubal ligation. Performed by Dr. Reginald Hair at [facility] in [place], [place]. Family History Father Hyperlipidemia Hypertension Thyroid condition Mother Colon cancer Brother Colon cancer Grandmother Diabetes Maternal and paternal Stroke maternal Denies family history of Rheumatoid arthritis Ovarian cancer Lupus Heart disease Breast cancer Uterine cancer Social History Smoking and tobacco status: never smoked Second hand smoke exposure: No Smoking risk assessment/counseling performed?: No Alcohol intake: never Desire information about alcohol rehabilitation?: No Counseling given: No Desire information about substance/drug rehabilitation?: No Counseling given: No Adopted: No Caregiver/support person: No Lives independently: Yes Household members: spouse Housing: House Marital status: Number of children: 2 service: No Current occupational status: employed Current occupation: [employer] [place] Pets and animals: No History of recent travel: No Current gender identity: Female Female Reproductive History: Date of last menstrual period: 12/30/20 Physical Exam Const: COMMON NORMALS: alert GENERAL APPEARANCE: cooperative, well developed and ill appearing (Mildly) HENMT: COMMON NORMALS: normocephalic and atraumatic HEAD & SCALP: normocephalic and atraumatic THROAT: posterior oropharynx normal Eye: COMMON NORMALS: conjunctivae normal CONJUNCTIVA: Yes conjunctivae normal SCLERA: sclerae normal Neck/C-Spine: COMMON NORMALS: supple GENERAL: Yes trachea midline Resp: EFFORT & INSPECTION: Yes able to speak in complete sentences AUSCULTATION: rhonchi (Bases bilaterally) Cardio: COMMON NORMALS: regular rate and regular rhythm RATE: regular rate RHYTHM: regular rhythm GI: COMMON NORMALS: Soft to palpation PALPATION: Yes Soft to palpation and No Tenderness to palpation present (GI) PERCUSSION: normal to percussion Extremity: GENERAL: Yes normal exam except as noted and No edema Neuro: COMMON NORMALS: moves all extremities SENSORIUM/ORIENTATION: Yes alert and No Orientation impaired Psych: COMMON NORMALS: mental status grossly normal and Normal thought process present THOUGHT PROCESS: Normal thought process present Course ED course: - Patient was seen and evaluated by me at bedside - Patient placed on cardiac monitors, IV access obtained - Initial evaluation notable for exam as above, somewhat ill appearing -Treatment ordered - Labs notable for no leukocytosis, mild evidence of dehydration, procalcitonin negative. COVID-positive. - Imaging notable for Interval appearance of the small focus of consolidation or atelectasis in the medial right lung base without other change on chest x-ray - Upon serial reexamination after treatment the patient was mildly improved - Based on patient history, evaluation, labs, and imaging as interpreted the most likely cause of the patient's condition is COVID-19 - The results of ED evaluation were discussed with the patient including p rescriptions and/or symptomatic cares (if applicable) including appropriate and responsible use, followup plan, and return precautions. The patient verbalized understanding and felt safe for discharge. - Patient discharged in satisfactory condition. Note: Click bubbles or prepopulated harris in note writing are used for assistance with data collection and billing and are inherently more limited than narrative and other text portions of this note. Please use narrative for additional clinical history and defer to narrative/free test for any case of contradictory information. If information appears in only free text or click bubble it should be considered present or absent as reported. Please contact note machine sign writer for clarifications of clinical information or contradictory information. MDM is a brief summary, contradictory or erroneous seeming information should be clarified and full note should be reviewed. Vital Signs: Vital signs: Vital Signs Temperature 98.7 F 09/17/21 02:22 Pulse Rate 105 H 09/17/21 02:22 Respiratory Rate 24 H 09/17/21 02:22 Blood Pressure 123/89 09/17/21 02:22 Pulse Oximetry 98 09/17/21 02:22 MDM - COVID MDM Narrative: Medical decision making narrative: 31-year-old lady with obesity presenting with COVID-like symptoms found to be COVID-positive. No new oxygen requirement. Qualifies for outpatient monoclonal antibody infusion. Medical Records: Attestation: I reviewed the patient's medical records. Lab Data: Attestation: I reviewed the patient's lab results. Labs: Lab Results 09/17/21 09/17/21 09/17/21 02:38 02:49 02:49 WBC 8.8 10^3/uL 10^3/ uL (4.0-10.0) RBC 4.82 10^6/uL 10^6 /uL (4.1-5.3) Hgb 12.5 g/dL g/dL (11.5-15.3) Hct 40.0 % % (37.0-47.0) MCV 83.0 fl fl (81-99) MCH 25.9 pg L pg (28.0-34.0) MCHC 31.3 g/dL g/dL (30.0-36.0) RDW 14.9 % % (12.1-15.1) Plt Count 250 10^3/cmm 10^3 /cmm (130-400) MPV 9.5 fL fL (7.4-10.4) Neut % (Auto) 75.2 % % Lymph % (Auto) 16.9 % % Bonner % (Auto) 6.8 % % Eos % (Auto) 0.6 % % Baso % (Auto) 0.3 % % Neut # (Auto) 6.63 10^3/uL 10^3 /uL (1.8-7.7) Lymph # (Auto) 1.5 10^3/uL 10^3/ uL (0.8-4.8) Bonner # (Auto) 0.6 10^3/uL 10^3/ uL (0.2-0.9) Eos # (Auto) 0.1 10^3/uL 10^3/ uL (0.0-0.8) Baso # (Auto) 0.0 10^3/uL 10^3/ uL (0.0-0.1) Nucleated RBC % (a uto) 0 % % Nucleated RBCs # 0.0 /100WBC /100W BC Sodium 134 mmol/L L mmol /L (136-145) Potassium 3.8 mmol/L mmol/L (3.5-5.1) Chloride 101 mmol/L mmol/L (98-107) Carbon Dioxide 22 mmol/L mmol/L (22-29) Anion Gap 14.8 (5-19) BUN 10 mg/dL mg/dL (6-20) Creatinine 0.6 mg/dL mg/dL (0.5-0.9) GFR Calculation 116.6 mL/min mL/m in (90-130) Glucose 110 mg/dL mg/dL (65-115) Calculated Osmolal ity 278 mOsm/kg L mOs m/kg (285-295) Calcium 8.6 mg/dL mg/dL (8.5-10.5) Total Bilirubin 0.2 mg/dL mg/dL (0.15-1.2) AST 15 U/L U/L (0-32) ALT 14 U/L U/L (0-33) Alkaline Phosphata se 92 IU/L IU/L (35-105) C-Reactive Protein 38.4 mg/L H mg/L (0.0-4.9) Total Protein 6.7 g/dL g/dL (6.6-8.7) Albumin 3.9 g/dL g/dL (3.5-5.2) Globulin 2.8 g/dL g/dL (1.3-4.6) Procalcitonin 0.06 ng/mL ng/mL (0-0.5) SARS-CoV-2 Ag (Rap id) Positive H (Negative) COVID Results: SARS-CoV-2 Antigen (Rapid) Positive (Negative) H 09/17/21 02:38 09/17/21 SARS-CoV-2 RNA (RT-PCR) Not detected (NOT DETECTED) 06/05/20 01:19 06/05/20 Discharge Plan Discharge Patient Disposition: Home Clinical Impression: COVID-19 Condition: Stable Prescriptions: No Action azithromycin 250 mg tablet See Rx Instructions PO .COMPLEX Qty: 6 RF: 0 cholecalciferol (vitamin D3) 50 mcg PO DAILY RF: 0 diclofenac sodium 1 % gel 2 gm TOPICAL QID Qty: 100 RF: 2 tramadol 50 mg tablet See Rx Instructions PO BID PRN (Reason: pain) Qty: 30 RF: 0 methocarbamol [Robaxin-750] 750 mg tablet 750 mg PO .2 times day Qty: 60 RF: 0 levothyroxine [Synthroid] 25 mcg tablet 25 mcg PO DAILY 30 Days Qty: 30 RF: 2 citalopram [Celexa] 20 mg tablet 20 mg PO DAILY 30 Days Qty: 30 RF: 2 bupropion HCl [Wellbutrin XL] 150 mg tablet extended release 24 hr 150 mg PO QAM Qty: 30 RF: 2 lisinopril 20 mg tablet 20 mg PO BID 30 Days Qty: 60 RF: 2 meloxicam 15 mg tablet 15 mg PO DAILY Qty: 30 RF: 2 Discharge Orders: Discharge ED (Routine); Ordered 09/17/21 Ordered By: Isaiah Bernal Other Ambulatory Orders: Request for MCA (Routine) Timeframe: 1 Day Facility: [facility] - Location: Outpatient Surgical Services Ordered By: Isaiah Bernal Referrals: Azul Zhao FNP-C [Primary Care Provider] - Discharge Diet: Usual diet Discharge Activity: Resume usual activity Patient Instructions: COVID-19 (Coronavirus Disease 2019) (ED) Activity Restrictions/Additional Instructions: Thank you for visiting the emergency department. You were seen and evaluated for generalized illness. You were found to have COVID-19 and I believe that this explains all of your symptoms. You will be referred for outpatient monoclonal antibody infusion. Please follow-up with your primary care provider once symptoms improved. Please return to the emergency department for worsening symptoms, oxygen saturation less than 90% at rest, or anything else that you are concerned about a feel needs Emergency Department evaluation. Coding Level of Care Code ED Workers Compensation Defense Attorney for Bill Keyes
[2021-09-17 02:22] VITALS: BP 123/89; PULSE 105; RESP 24; TEMP 37.1; O2SAT 98; BMI 52.1
--- NOTE | 2021-09-17 02:28 | XRR_ITS ---
PROCEDURE INFORMATION: Exam: XR Chest Exam date and time: 09/17/2021 2:28 AM Age: 31 years old Clinical indication: Dyspnea; Additional info: SOB TECHNIQUE: Imaging protocol: XR of the chest. Views: 1 view. COMPARISON: CR XR chest 1V portable [id number] 06/05/2020 12:18 AM FINDINGS: Lungs: Interval small focus of increased density in the medial aspect of the right posterior sulcus. No new disease elsewhere in the lungs. Pleural spaces: Still no pneumothorax or apparent pleural fluid. Heart/Mediastinum: Still no cardiomegaly. Bones/joints: No suggestion of acute bony disease. XR/XR chest 1V portable [id number] IMPRESSION: Interval appearance of the small focus of consolidation or atelectasis in the medial right lung base without other change.
[2021-09-17 03:03] LABS: Basophils % 0.3 %; Eosinophils # 0.1 10^3/uL (0.0-0.8); Eosinophils % 0.6 %; Hemoglobin 12.5 g/dL (11.5-15.3); Lymphocytes # 1.5 10^3/uL (0.8-4.8); Lymphocytes % 16.9 %; Mean Corpuscular HGB Conc 31.3 g/dL (30.0-36.0); Mean Corpuscular Hemoglobin 25.9 pg (28.0-34.0); Mean Platelet Volume 9.5 fL (7.4-10.4); Monocytes # 0.6 10^3/uL (0.2-0.9); Monocytes % 6.8 %; Neutrophils # 6.63 10^3/uL (1.8-7.7); Neutrophils % 75.2 %; Nucleated Red Blood Cells % 0 %; Platelet Count 250 10^3/cmm (130-400); Red Blood Count 4.82 10^6/uL (4.1-5.3); Red Cell Distribution Width 14.9 % (12.1-15.1); White Blood Count 8.8 10^3/uL (4.0-10.0)
[2021-09-17 03:10] LABS: SARS Covid-2 Antigen Positive (Negative)
[2021-09-17 03:23] LABS: Alanine Aminotransferase 14 U/L (0-33); Albumin Level 3.9 g/dL (3.5-5.2); Alkaline Phosphatase 92 IU/L (35-105); Anion Gap 14.8 (5-19); Aspartate Amino Transferase 15 U/L (0-32); Blood Urea Nitrogen 10 mg/dL (6-20); C Reactive Protein 38.4 mg/L (0.0-4.9); Calcium 8.6 mg/dL (8.5-10.5); Carbon Dioxide 22 mmol/L (22-29); Chloride 101 mmol/L (98-107); Globulin 2.8 g/dL (1.3-4.6); Glomerular Filtration Rate 116.6 mL/min (90-130); Glucose 110 mg/dL (65-115); Osmolality Calculated 278 mOsm/kg (285-295); Potassium 3.8 mmol/L (3.5-5.1); Sodium 134 mmol/L (136-145); Total Bilirubin 0.2 mg/dL (0.15-1.2); Total Protein 6.7 g/dL (6.6-8.7)
[2021-09-17 03:28] LABS: Procalcitonin 0.06 ng/mL (0-0.5)
[2021-09-17] MEDS: sodium chloride 0.9% 500 ML IV (03:29)
[2021-09-17] MEDS: ketorolac 30 mg/mL INJ 15 MG IVP (03:35)
== END 2021-09-17 04:43 | disposition home or self-care (01) ==
PROVIDERS: Emergency Provider Emergency Medicine; PCP Nurse Practitioner
DX: U07.1 COVID-19 (principal); I10 Essential (primary) hypertension
CPT/HCPCS: 71045; 80053; 84145; 85025; 86140; 87426; 96361; 96374; 99283; J1885; J7040

== ENCOUNTER → 2022-01-07 14:23 | Outpatient (BNVA) | payer SELFPAY | PROVIDERS: PCP Nurse Practitioner; Visit Provider Obstetrics & Gynecology | DX: N93.9 Abnormal uterine and vaginal bleeding, unspecified (principal); N91.5 Oligomenorrhea, unspecified | CPT/HCPCS: 83001; 84146; 84443; 84702 ==

== ENCOUNTER → 2022-06-03 16:09 | Outpatient (BNVA) | payer SELFPAY | PROVIDERS: PCP Nurse Practitioner; Visit Provider Nurse Practitioner | DX: E03.8 Other specified hypothyroidism (principal); E06.3 Autoimmune thyroiditis; I10 Essential (primary) hypertension | CPT/HCPCS: 80053; 80061; 84443 ==

== ENCOUNTER → 2022-08-14 14:13 | Outpatient (BNVA) | payer SELFPAY | PROVIDERS: PCP Nurse Practitioner; Visit Provider Nurse Practitioner Family | DX: J02.9 Acute pharyngitis, unspecified (principal); R05.9 Cough, unspecified; J06.9 Acute upper respiratory infection, unspecified | CPT/HCPCS: 87071; 87400; 87426; 87880 ==

== ENCOUNTER → 2022-08-26 08:29 | Outpatient (BNVA) | payer SELFPAY | PROVIDERS: PCP Nurse Practitioner; Visit Provider Nurse Practitioner | DX: I10 Essential (primary) hypertension (principal); M25.529 Pain in unspecified elbow; M79.672 Pain in left foot; F41.8 Other specified anxiety disorders; G89.29 Other chronic pain; E06.3 Autoimmune thyroiditis; E03.8 Other specified hypothyroidism; F41.9 Anxiety disorder, unspecified | CPT/HCPCS: 80053; 80061; 84443 ==

== ENCOUNTER → 2022-09-03 09:53 | Outpatient (BNVA) | payer SELFPAY | PROVIDERS: PCP Nurse Practitioner; Visit Provider Nurse Practitioner | DX: M25.529 Pain in unspecified elbow (principal); G89.29 Other chronic pain; M79.672 Pain in left foot | CPT/HCPCS: 73080; 73630 ==

== ENCOUNTER 2022-09-17 13:54 | Outpatient (CLI) | payer BC, SELFPAY | END 2022-09-17 13:55 | disposition home or self-care (01) | LOC: SPT 13:54 | PROVIDERS: PCP Nurse Practitioner; Visit Provider Podiatrist Foot & Ankle Surgery | DX: Z46.89 Encounter for fitting and adjustment of other specified devices (principal); M79.672 Pain in left foot | CPT/HCPCS: 97760; L4361 ==

== ENCOUNTER 2022-10-23 11:15 | Outpatient (CLI) | payer BC, SELFPAY ==
--- NOTE | 2022-10-23 11:23 | CT_ITS ---
WS: [id number] CT LEFT FOOT, NONCONTRAST. HISTORY: M84.375A - Stress fracture, left foot, initial encounter ... Technique: All CT scans at [facility] use at least one of these dose optimization techniques: automated exposure control; mA and/or kV adjustment per patient size (includes targeted exams where dose is matched to clinical indication); or iterative reconstruction. DLP: 113.36 mGy.cm COMPARISON: LEFT foot radiograph 09/03/2022 No acute or healed fractures involving the metatarsals. No stress fracture is identified. There is no callus formation. Very mild hallux valgus deformity. Mild hammertoe deformities. There is a small ca lcaneal spur measuring 7 mm. No widening of the Lisfranc articulation. No soft tissue abnormality or foreign body. CT/CT foot LT wo con* [id number] IMPRESSION: 1. No stress fractures are identified. No healing fractures. 2. Small calcaneal spur 7 mm.
== END 2022-10-23 11:16 | disposition home or self-care (01) ==
PROVIDERS: PCP Nurse Practitioner; Visit Provider Podiatrist Foot & Ankle Surgery
DX: M77.32 Calcaneal spur, left foot (principal); M20.12 Hallux valgus (acquired), left foot; M79.672 Pain in left foot
CPT/HCPCS: 73700

== ENCOUNTER → 2022-12-01 10:14 | Outpatient (BNVA) | payer BC, SELFPAY | PROVIDERS: PCP Nurse Practitioner; Visit Provider Nurse Practitioner Family | DX: R50.9 Fever, unspecified (principal); R51.9 Headache, unspecified; R05.9 Cough, unspecified | CPT/HCPCS: 87426; 87486; 87581; 87633 ==

== ENCOUNTER 2023-01-08 14:46 | Outpatient (CLI) | payer BC, SELFPAY ==
--- NOTE | 2023-01-08 14:30 | MR_ITS ---
WS: [id number] MRI LEFT FOOT without CONTRAST. COMPARISON: CT LEFT foot 10/23/2022 and radiograph 09/03/2022 Multiplanar, multisequence imaging is performed without contrast. History: Mid lateral LEFT foot pain for several months. Marker is placed along the area of pain which is near the proximal to mid fifth metatarsal. No marrow edema or fracture is identified. No callus formation or healing fracture. The cortex is intact. The soft tissues appear normal. Seen best on the axial T1 sequence is a thin hypointense line along the medial proximal fifth metatar wong. There is no associated edema. This may be a nutrient foramen. If this was a fracture it has heal ed with no residual edema and no significant callus formation. Near similar findings on the third and fourth metatarsal therefore I believe this is a nutrient foramen and not from prior trauma. No evidence for tenosynovitis. Peroneal longus and brevis tendons are normal. No increased signal wit hin the tendon or tendon sheath. Negative Achilles tendon. Flexor and extension tendons are negative. Small calcaneal spur measuring 7 mm. MR/MR foot LT wo con* [id number] IMPRESSION: 1. Unremarkable MRI LEFT foot with attention to the fifth metatarsal. 2. No healing or partially healed fractures or edema. 3. Peroneus brevis and longus tendons are negative.
== END 2023-01-08 14:47 | disposition home or self-care (01) ==
PROVIDERS: PCP Nurse Practitioner; Visit Provider Podiatrist Foot & Ankle Surgery
DX: M76.72 Peroneal tendinitis, left leg (principal); M79.672 Pain in left foot
CPT/HCPCS: 73718

== ENCOUNTER → 2023-08-17 14:50 | Outpatient (BNVA) | payer MEDICAID, SELFPAY | PROVIDERS: PCP Nurse Practitioner; Visit Provider Specialist | DX: M25.562 Pain in left knee (principal); E66.01 Morbid (severe) obesity due to excess calories; Z68.42 Body mass index [BMI] 45.0-49.9, adult | CPT/HCPCS: 73560; 73565 ==

== ENCOUNTER 2023-09-25 12:30 | Outpatient (CLI) | payer MEDICAID, SELFPAY ==
--- NOTE | 2023-09-25 12:37 | MR_ITS ---
WS: [email or web address] MRI LEFT KNEE ARTHROGRAM TECHNIQUE: Axial PD, coronal PD fat sat, coronal PD, sagittal PD, and sagittal PD fat-sat images obta ined. Multiplanar fat saturation T1 imaging and post intra articular administration of gadolinium CLINICAL INFORMATION: left knee pain COMPARISON: MRI left knee 2017 FINDINGS: Distal quadriceps and patella tendons are intact. Normal ACL and PCL. Chronic thinning of the medial and lateral meniscus. No acute appearing meniscal tears. Small suprapatellar effusion. Lateral sublux ation of the patella from the trochlear groove. This is similar to the MRI in 2017. High-grade comple te tear of the lateral patellar retinaculum just proximal to the insertion. This is new from 2017. Ad vanced chondromalacia patella. Hypertrophic patella. No evidence of femoral contusion today. Medial patellar retinaculum is intact. Medial collateral ligament and lateral collateral ligaments ar e intact. Normal popliteus. Normal popliteal fossa. Tiny osteochondral defect involving the lateral f emoral condyle. Post arthrogram images demonstrate no acute appearing meniscal tears. Full-thickness tear of the late ral patellar retinaculum with dissecting contrast in this area. Advanced chondromalacia patella. Medi al and lateral collateral ligaments appear intact. Grade IV chondromalacia patella. Small ovoid fragment adjacent to the anterior horn lateral meniscus abutting the anterior tibia with peripheral contrast. This measures approximately 6.4 mm and follows bone marrow signal on all sequenc es suspicious for avulsed bony fragment. Recommend attention to this area if arthroscopy is performed . IMPRESSION: 1. ACL and PCL are intact. 2. Lateral subluxation of the patella with high-grade complete tear of the lateral patellar retinacu lum just proximal to the insertion. This is new since 2017. Medial patellar retinaculum appears intac t. 3. Suspected intra-articular avulsed bony fragment along the anterior horn lateral meniscus adjacent to the anterolateral tibia and infrapatellar fat pad. This measures approximately 6.4 mm and is outl ined with gadolinium. 4. Advanced chondromalacia patella. 5. Small suprasellar effusion. 6. Chronic thinning of the medial and lateral meniscus. No acute appearing meniscal tears. 7. Small osteochondral defect involving the lateral femoral condyle with slight edema. 8. Medial and lateral collateral ligaments are intact. Outbridge grading: grade IV: full-thickness cartilage loss with underlying bone reactive changes
--- NOTE | 2023-09-25 13:00 | IR_ITS ---
WS: [email or web address] LEFT KNEE ARTHROGRAM Fluoroscopic guided left knee arthrogram. CLINICAL INFORMATION: left knee pain COMPARISON: None. TECHNIQUE: The procedure including risks, benefits, and complications were discussed with the patient , who agreed to proceed. Timeout was performed. Using sterile technique, the patient was prepped and draped in the usual sterile fashion. After 1% lidocaine injection using fluoroscopic guidance, a 22-g auge spinal needle was advanced into the left patellofemoral compartment. Subsequently 40 cc of a mix ture containing 10 cc 1% lidocaine, 20 cc normal saline, 10 cc Omnipaque 240, and 0.2 cc gadolinium w as administered. No immediate complications. FLUOROSCOPY TIME: 1min [id number] # of spot films: 4 IMPRESSION: Uncomplicated left knee fluoroscopic guided arthrogram. MRI to follow.
== END 2023-09-25 12:31 | disposition home or self-care (01) ==
LOC: RAD 12:30
PROVIDERS: PCP Nurse Practitioner Family; Visit Provider Specialist
DX: S83.012A Lateral subluxation of left patella, initial encounter (principal); S86.812A Strain of other muscle(s) and tendon(s) at lower leg level, left leg, initial encounter; X58.XXXA Exposure to other specified factors, initial encounter; M22.42 Chondromalacia patellae, left knee; M23.301 Other meniscus derangements, unspecified lateral meniscus, left knee; M23.304 Other meniscus derangements, unspecified medial meniscus, left knee
CPT/HCPCS: 27369; 73723; 77002; A9577; Q9966

== ENCOUNTER → 2023-10-25 15:22 | Outpatient (BNVA) | payer MEDICAID, SELFPAY | PROVIDERS: PCP Nurse Practitioner Family; Visit Provider Registered Nurse Neonatal Intensive Care | DX: S99.922A Unspecified injury of left foot, initial encounter (principal); X58.XXXA Exposure to other specified factors, initial encounter; M79.605 Pain in left leg | CPT/HCPCS: 73590; 73630 ==

== ENCOUNTER → 2023-12-14 15:09 | Outpatient (BNVA) | payer MEDICAID, SELFPAY | PROVIDERS: PCP Nurse Practitioner Family; Visit Provider Family Medicine | DX: N39.0 Urinary tract infection, site not specified (principal) | CPT/HCPCS: 81003 ==

== ENCOUNTER → 2024-01-15 10:44 | Outpatient (BNVA) | payer MEDICAID, SELFPAY | PROVIDERS: PCP Nurse Practitioner Family; Visit Provider Podiatrist Foot & Ankle Surgery | DX: M84.375A Stress fracture, left foot, initial encounter for fracture (principal) | CPT/HCPCS: 73630 ==

== ENCOUNTER 2024-01-27 12:44 | Outpatient (CLI) | payer MEDICAID, SELFPAY ==
--- NOTE | 2024-01-27 13:00 | MR_ITS ---
WS: [id number] EXAMINATION: MR foot LT wo con* [id number] ORDER DATE: 01/27/2024 12:52 PM COMPARISON: None. HISTORY: contined pain months after crush injury CONTRAST: Radiograph 01/15/24 TECHNIQUE: Sagittal T1, sagittal STIR, coronal PD, coronal T2, axial T1, axial T2, and axial PD imagi ng with fat saturation technique. FINDINGS: Prominent plantar calcaneal spurring. Normal ankle mortise. Palpable marker over the dorsal forefoot at the level of the metatarsals. Normal bone marrow signal in the metatarsals. No acute fra ctures or stress fracture visualized. Base of the fifth metatarsal appears normal. Normal visualized soft tissues. Normal bone marrow signal in the navicular and cuboid.Normal cuneifor ms. Partially visualized phalanges are unremarkable. Mild degenerative change in the first MTP. No ot her suspicious findings. MR/MR foot LT wo con* [id number] IMPRESSION: 1. Normal bone marrow signal in the metatarsals. No evidence of acute fracture or stress fracture. No edema. 2. Moderate degenerative change first MTP with small amount of fluid. 3. Plantar calcaneal spurring visualized on the vehicle operator technician imaging. 4. No suspicious abnormalities deep to the palpable marker dorsal midfoot and forefoot.
== END 2024-01-27 12:45 | disposition home or self-care (01) ==
LOC: RAD 12:44
PROVIDERS: PCP Nurse Practitioner Family; Visit Provider Podiatrist Foot & Ankle Surgery
DX: S99.822D Other specified injuries of left foot, subsequent encounter (principal); X58.XXXD Exposure to other specified factors, subsequent encounter; M77.32 Calcaneal spur, left foot
CPT/HCPCS: 73718

== ENCOUNTER 2024-05-24 15:54 | Emergency (ER) | payer MEDICAID, SELFPAY ==
[2024-05-24 16:12] VITALS: BP 133/68; PULSE 80; RESP 16; TEMP 36.7; O2SAT 98; BMI 44.2
--- NOTE | 2024-05-24 16:32 | ED_ITS ---
Documented by User: SOHA Mcmanus 05/24/24 16:40 HPI - Headache General: Chief Complaint: Headache Stated Complaint: migraine 4 days Time Seen by Provider: 05/24/24 16:17 Source: patient Mode of arrival: ambulatory Limitations: no limitations History of Present Illness: Patient is a 33-year-old female who presents to ED today with a complaint of a migraine over the past 4 days. She states she has a longstanding history of migraines. Patient states she has been on Topamax over the past 6 months or so has really not noticed much of an improvement with this medication. She states she is awaiting an appointment with neurology and/or headache specialist. Patient states her headache today feels identical to previous migraines just worse in severity. She is having nausea and sensitivity to light. No fevers or neck pain/stiffness. MD elicited complaint: migraine Onset (ago): day(s) Severity: severe Pain scale (0-10): 8 Exacerbating factors: light and noise Relieving factors: nothing Associated symptoms: Reports nausea; Deny chest pain, confusion, fever(s), malaise, rash or vomiting Treatments prior to arrival: none Related Data Home Medications Medication Instructions Recorded Confirmed buspirone 10 mg tablet mg PO 10/25/23 02/14/24 olmesartan 20 mg tablet mg PO 10/25/23 02/14/24 phentermine 37.5 mg tablet mg PO 10/25/23 02/14/24 topiramate 25 mg tablet mg PO 10/25/23 02/14/24 Previous Rx's Medication Instructions Recorded bupropion HCl 150 mg 24 hr tablet, 150 mg PO QAM #14 tabs 01/10/23 extended release (Wellbutrin XL) levothyroxine 25 mcg tablet 25 mcg PO DAILY 30 days #14 tabs 01/10/23 (Synthroid) meloxicam 15 mg tablet 15 mg PO DAILY left knee pain #30 08/17/23 tabs phenazopyridine 100 mg tablet 100 mg PO TID #20 tabs 12/14/23 (Pyridium) CAM boot #1 ea 01/15/24 Allergies Allergy/AdvReac Type Severity Reaction Status Date / Time cephalexin [From Keflex] Allergy ALGY-Hives Verified 02/14/24 15:20 Penicillins Allergy ALGY-Hives Verified 02/14/24 15:20 Sulfa (Sulfonamide Allergy ALGY-Hives Verified 02/14/24 15:20 Antibiotics) doxepin AdvReac syncope Verified 02/14/24 15:20 Review of Systems Const: Denies: fever(s), chills, body aches, fatigue or malaise Eyes: Reports: photophobia; Denies: change in vision, blurry vision, floaters or seeing flashes Card: Denies: chest pain Resp: Denies: dyspnea GI: Reports: nausea; Denies: abdominal pain or vomiting Musc: Denies: neck pain Skin/Breast: Denies: rash Neuro: Reports: headache(s); Denies: numbness in extremities, weakness in extremities, sensory changes, dizziness, confusion, behavioral changes or Slurred speech present PFSH ED PFSH: Medical History Anxiety associated with depression Left thigh pain Acute and chronic respiratory failure with hypercapnia Left thigh pain CPK WNL Positive ISABELLE (antinuclear antibody) Greater trochanteric pain syndrome Meralgia paresthetica of both lower extremities Lumbar radiculopathy, chronic Chronic migraine Vitamin D deficiency Class 1 obesity with serious comorbidity in adult Patient denies medical problems Denies history of: heart disease, breast cancer, ovarian cancer, or uterine cancer Hypertension Surgical History History of colonoscopy (~2017) History of tonsillectomy and adenoidectomy History of tubal ligation (~01/23/16) bilateral tubal ligation. Performed by Dr. Reginald Hair at [facility] in [place], [place]. Family History Father Hyperlipidemia Hypertension Thyroid disease Mother Colon cancer Brother Colon cancer Grandmother Diabetes Maternal and paternal Stroke maternal Denies family history of Rheumatoid arthritis Ovarian cancer Lupus Heart disease Breast cancer Uterine cancer Social History Smoking and tobacco/nicotine status: never used tobacco/nicotine Second hand smoke exposure: No Alcohol intake: never Substance/Drug Use: unknown Adopted: No Caregiver/support person: No Lives independently: Yes Household members: spouse Housing: House Marital status: Number of children: 2 service: No Current occupational status: unemployed Pets and animals: No Do you think of yourself as: Straight/Heterosexual Current gender identity: Female Physical Exam Const: COMMON NORMALS: no acute distress, patient oriented x3, no limitations, alert and well nourished GENERAL APPEARANCE: cooperative NUTRITIONAL APPEARANCE: obese (BMI 44.3) ORIENTATION/CONSCIOUSNESS: Yes awake, Yes oriented to person, Yes oriented to place and Yes oriented to time HENMT: COMMON NORMALS: normocephalic and atraumatic HEAD & SCALP: normal to inspection, normocephalic and atraumatic FACE & SINUS: face symmetric Eye: GENERAL EYE: appearance normal, both eyes and all related structures Neck/C-Spine: COMMON NORMALS: full ROM and no meningeal signs Neuro: ROEL COMA SCALE: document GCS findings Roel coma scale eye opening: Spontaneous Roel coma scale verbal response: Orientated Roel coma scale motor response: Obey commands Milton coma scale total score: 15 COMMON NORMALS: patient oriented x3, CN's II-XII intact bilaterally, moves all extremities, no focal motor deficits, no sensory deficits noted and gait normal SENSORIUM/ORIENTATION: Yes alert, Yes oriented to person, Yes oriented to place and Yes oriented to time MENINGEAL SIGNS: Yes no meningeal signs Skin: COMMON NORMALS: no rashes or lesions noted GENERAL SKIN EXAM: no rash es or lesions noted Course Vital Signs: Vital signs: Vital Signs Temperature 98.0 F 05/24/24 16:12 Pulse Rate 74 05/24/24 18:59 Respiratory Rate 16 05/24/24 16:12 Blood Pressure 120/79 05/24/24 18:59 Pulse Oximetry 94 05/24/24 18:59 Oxygen Delivery Me thod Room Air 05/24/24 17:00 Discharge Plan Discharge Patient Disposition: Home Clinical Impression: Chronic migraine Condition: Stable Prescriptions: No Action meloxicam 15 mg tablet 15 mg PO DAILY Qty: 30 1RF topiramate 25 mg tablet PO phentermine 37.5 mg tablet PO buspirone 10 mg tablet PO olmesartan 20 mg tablet PO phenazopyridine [Pyridium] 100 mg tablet 100 mg PO TID Qty: 20 0RF (DME) CAM boot See Rx Instructions .Route .MEDSUPPLY Qty: 1 0RF Rx Instructions: As directed to HOME levothyroxine [Synthroid] 25 mcg tablet 25 mcg PO DAILY 30 Days Qty: 14 0RF bupropion HCl [Wellbutrin XL] 150 mg tablet extended release 24 hr 150 mg PO QAM Qty: 14 0RF Discharge Orders: Discharge ED (Routine); Ordered 05/24/24 Ordered By: Vijay Box Referrals: Roshni Vázquez APN [Primary Care Provider] - Discharge Diet: Usual diet Discharge Activity: Increase activity as tolerated Patient Instructions: Migraine Headache (ED) Activity Restrictions/Additional Instructions: Plenty fluids. Continue taking Tomac's. Alternate Tylenol and ibuprofen as discussed. Avoid any exacerbating factors that may make your migraine worse. Continue plan for follow-up with neurology. Return if your migraine does not improve or any severe worsening of symptoms. Stand Alone Forms: Work/School Release Sign Out Sign Out Data: Patient Sign Out occurred on 05/24/24 at 17:16. Patient's care was discussed, and care was transferred from SOHA Mcmanus to SOHA Guevara. Coding Level of Care Code ED Matcher Operator for Chg Fwd Documented by User: SOHA Guevara 05/24/24 19:21 HPI - Headache General: Chief Complaint: Headache Stated Complaint: migraine 4 days Time Seen by Provider: 05/24/24 16:17 Related Data Home Medications Medication Instructions Recorded Confirmed buspirone 10 mg tablet mg PO 10/25/23 02/14/24 olmesartan 20 mg tablet mg PO 10/25/23 02/14/24 phentermine 37.5 mg tablet mg PO 10/25/23 02/14/24 topiramate 25 mg tablet mg PO 10/25/23 02/14/24 Previous Rx's Medication Instructions Recorded bupropion HCl 150 mg 24 hr tablet, 150 mg PO QAM #14 tabs 01/10/23 extended release (Wellbutrin XL) levothyroxine 25 mcg tablet 25 mcg PO DAILY 30 days #14 tabs 01/10/23 (Synthroid) meloxicam 15 mg tablet 15 mg PO DAILY left knee pain #30 08/17/23 tabs phenazopyridine 100 mg tablet 100 mg PO TID #20 tabs 12/14/23 (Pyridium) CAM boot #1 ea 01/15/24 Allergies Allergy/AdvReac Type Severity Reaction Status Date / Time cephalexin [From Keflex] Allergy ALGY-Hives Verified 02/14/24 15:20 Penicillins Allergy ALGY-Hives Verified 02/14/24 15:20 Sulfa (Sulfonamide Allergy ALGY-Hives Verified 02/14/24 15:20 Antibiotics) doxepin AdvReac syncope Verified 02/14/24 15:20 PFSH ED PFSH: Medical History Anxiety associated with depression Left thigh pain Acute and chronic respiratory failure with hypercapnia Left thigh pain CPK WNL Positive ISABELLE (antinuclear antibody) Greater trochanteric pain syndrome Meralgia paresthetica of both lower extremities Lumbar radiculopathy, chronic Chronic migraine Vitamin D deficiency Class 1 obesity with serious comorbidity in adult Patient denies medical problems Denies history of: heart disease, breast cancer, ovarian cancer, or uterine cancer Hypertension Surgical History History of colonoscopy (~2017) History of tonsillectomy and adenoidectomy History of tubal ligation (~01/23/16) bilateral tubal ligation. Performed by Dr. Reginald Hair at [facility] in [place], [place]. Family History Father Hyperlipidemia Hypertension Thyroid disease Mother Colon cancer Brother Colon cancer Grandmother Diabetes Maternal and paternal Stroke maternal Denies family history of Rheumatoid arthritis Ovarian cancer Lupus Heart disease Breast cancer Uterine cancer Social History Smoking and tobacco/nicotine status: never used tobacco/nicotine Second hand smoke exposure: No Alcohol intake: never Substance/Drug Use: unknown Adopted: No Caregiver/support person: No Lives independently: Yes Household members: spouse Housing: House Marital status: Number of children: 2 service: No Current occupational status: unemployed Pets and animals: No Do you think of yourself as: Straight/Heterosexual Current gender identity: Female Physical Exam Neuro: ROEL COMA SCALE: document GCS findings [place] coma scale total score: 15 Course Vital Signs: Vital signs: Vital Signs Temperature 98.0 F 05/24/24 16:12 Pulse Rate 74 05/24/24 18:59 Respiratory Rate 16 05/24/24 16:12 Blood Pressure 120/79 05/24/24 18:59 Pulse Oximetry 94 05/24/24 18:59 Oxygen Delivery Al thod Room Air 05/24/24 17:00 MDM - Headache Medical Decision Making Care of patient transferred to [place] by Ronald provider. History of migraines, states she has not seen a neurologist but is set to see 1 later this month. She does take Topamax daily but states she does not think it is helping. She states that this migraine feels identically similar to prior, just worse and that it has been persisting over the past 4 days. Arrived stating it was an 8/10. She was given a migraine cocktail, states that there has only been minimal improvement but she can tell that it feels better. She states she is okay treating at home and will follow-up with neurology as already planned. Encouraged to continue her Topamax as well as alternating Tylenol and ibuprofen and to drink plenty of fluids and avoid any exacerbating factors. Strict return precautions were given such that if her migraine headache is getting worse to come back and we will image her head at that time. Neurologically the patient was intact and was stable clinically throughout her ED course. No radiology studies performed this visit Discharge Plan Discharge Patient Disposition: Home Clinical Impression: Chronic migraine Condition: Stable Prescriptions: No Action meloxicam 15 mg tablet 15 mg PO DAILY Qty: 30 1RF topiramate 25 mg tablet PO phentermine 37.5 mg tablet PO buspirone 10 mg tablet PO olmesartan 20 mg tablet PO phenazopyridine [Pyridium] 100 mg tablet 100 mg PO TID Qty: 20 0RF (DME) CAM boot See Rx Instructions .Route .MEDSUPPLY Qty: 1 0RF Rx Instructions: As directed to HOME levothyroxine [Synthroid] 25 mcg tablet 25 mcg PO DAILY 30 Days Qty: 14 0RF bupropion HCl [Wellbutrin XL] 150 mg tablet extended release 24 hr 150 mg PO QAM Qty: 14 0RF Discharge Orders: Discharge ED (Routine); Ordered 05/24/24 Ordered By: Vijay Box Referrals: Roshni Vázquez APN [Primary Care Provider] - Discharge Diet: Usual diet Discharge Activity: Increase activity as tolerated Patient Instructions: Migraine Headache (ED) Activity Restrictions/Additional Instructions: Plenty fluids. Continue taking Tomac's. Alternate Tylenol and ibuprofen as discussed. Avoid any exacerbating factors that may make your migraine worse. Continue plan for follow-up with neurology. Return if your migraine does not improve or any severe worsening of symptoms. Stand Alone Forms: Work/School Release Sign Out Sign Out Data: Patient Sign Out occurred on 05/24/24 at 17:16. Patient's care was discussed, and care was transferred from SOHA Mcmanus to SOHA Guevara. Coding Level of Care Code ED Matcher Operator for Bill Keyes
[2024-05-24] MEDS: ondansetron 2 mg/ML SDV 2 mL 4 MG IVP (16:53)
[2024-05-24] MEDS: dexamethasone 10 mg/mL INJ 8 MG IVP (16:54)
[2024-05-24] MEDS: ketorolac 60 mg/2 mL INJ 30 MG IVP (16:56)
[2024-05-24] MEDS: diphenhydrAMINE 50 mg/mL SDV 1mL IVP (16:58)
[2024-05-24] MEDS: sodium chloride 0.9% 1,000 ML 999 ML IV (16:59)
[2024-05-24 17:00] VITALS: BP 150/114; PULSE 83; O2SAT 100
[2024-05-24 18:59] VITALS: BP 120/79; PULSE 74; O2SAT 94
== END 2024-05-24 19:04 | disposition home or self-care (01) ==
PROVIDERS: Emergency Provider Physician Assistant; PCP Nurse Practitioner Family
DX: G43.909 Migraine, unspecified, not intractable, without status migrainosus (principal); I10 Essential (primary) hypertension
CPT/HCPCS: 96361; 96374; 96375; 99284; J1100; J1200; J1885; J2405; J7030

== ENCOUNTER → 2024-10-22 11:51 | Outpatient (BNVA) | payer MEDICAID, SELFPAY | PROVIDERS: PCP Nurse Practitioner Family; Visit Provider Nurse Practitioner Family | DX: J02.9 Acute pharyngitis, unspecified (principal); J02.0 Streptococcal pharyngitis | CPT/HCPCS: 87400; 87880 ==

== ENCOUNTER 2025-01-24 15:38 | Outpatient (CLI) | payer SELFPAY ==
--- NOTE | 2025-01-24 15:54 | XRR_ITS ---
PROCEDURE INFORMATION: Exam: XR Sacrum and Coccyx, 2 or More Views Exam date and time: 01/24/2025 4:07 PM Age: 34 years old Clinical indication: Injury or trauma; Blunt trauma (contusions or hematomas); Injury date: 5 days ago; Injury details: Fell down stairs x5 days, pain in tailbone area; Additional info: Injury to tailbone TECHNIQUE: Imaging protocol: XR of the sacrum and coccyx, 2 or more views. COMPARISON: CR (CHEST, ) 09/17/2021 2:37 AM FINDINGS: Bones/joints: Normal. No acute fracture. Soft tissues: Normal. XR/XR coccyx 2V [id number] IMPRESSION: No acute findings.
== END 2025-01-24 15:39 | disposition home or self-care (01) ==
PROVIDERS: PCP Nurse Practitioner Family; Visit Provider Nurse Practitioner
DX: S39.92XA Unspecified injury of lower back, initial encounter (principal); W19.XXXA Unspecified fall, initial encounter
CPT/HCPCS: 72220; J1885

== ENCOUNTER 2025-05-05 13:35 | Outpatient (CLI) | payer MEDICAID, SELFPAY ==
--- NOTE | 2025-05-05 13:46 | USR_ITS ---
PROCEDURE INFORMATION: Exam: US Soft Tissue Head and Neck, Thyroid Exam date and time: 05/05/2025 2:12 PM Age: 34 years old Clinical indication: Condition or disease; Thyroid disorder; Other: Thyromegaly TECHNIQUE: Imaging protocol: Real-time ultrasound scan of the neck with image documentation. Exam focused on the thyroid. COMPARISON: US thyroid [id number] 01/13/2019 8:47 AM FINDINGS: Right thyroid lobe: The right thyroid lobe measures 4.2 x 1.9 x 1.8 cm. Heterogeneous thyroid gland with coarse echotexture and increased flow on color Doppler. No discrete thyroid nodule. Left thyroid lobe: The left thyroid lobe measures 5 x 2.4 x 2 cm. Isthmus: The isthmus measures 5 mm. Lymph nodes: Prominent left submandibular lymph nodes with preserved morphology, reactive US/US thyroid [id number] IMPRESSION: Findings of thyroiditis with no discrete nodules or suspicious lymphadenopathy.
== END 2025-05-05 13:36 | disposition home or self-care (01) ==
LOC: RAD 13:37
PROVIDERS: PCP Nurse Practitioner Family; Visit Provider Nurse Practitioner Family
DX: E06.9 Thyroiditis, unspecified (principal)
CPT/HCPCS: 76536

== ENCOUNTER → 2025-05-11 12:13 | Outpatient (BNVA) | payer MEDICAID, SELFPAY | PROVIDERS: PCP Nurse Practitioner Family; Referring Provider Nurse Practitioner Family; Visit Provider Internal Medicine | DX: E03.8 Other specified hypothyroidism (principal); E06.3 Autoimmune thyroiditis | CPT/HCPCS: 36415; 84439; 84443 ==

== ENCOUNTER → 2025-08-02 16:57 | Outpatient (BNVA) | payer MEDICAID, SELFPAY | PROVIDERS: PCP Nurse Practitioner Family; Visit Provider Emergency Medicine | DX: R30.0 Dysuria (principal); R39.9 Unspecified symptoms and signs involving the genitourinary system | CPT/HCPCS: 81000; 87086 ==